=== PATIENT | male | born 1945 | race Caucasian/White ===

== ENCOUNTER 2016-05-20 07:04 | Inpatient (IN) | payer MEDICARE, OTHER ==
[~2016-05-20] VITALS: Ht 167.6 cm; Wt 65.7 kg
[~2016-05-20 07:04] MED LIST: ALPR0.255 PO; AMLO-512 PO; ASCO500 PO; CEFT600I IV; CLOP75 PO; DOCU250C91 PO; FERG325 PO; HYDR-3971 PO; INSLAN SQ; INSNOV SQ; INSU100V12 SQ; LISI-661 PO; METO50 PO; MULT-68 PO; POLY238P2 PO; SENN-161 PO; VITAD1000 PO
[2016-05-20 09:11] VITALS: BP 124/81
[2016-05-20] MEDS ORDERED: VANCOMYCIN HCL 500 MG in DEXTROSE 5%-WATER 100 ML IV SCH (10:15)
[2016-05-20] MEDS ORDERED: HYDROCODONE/ACETAMINOPHEN 10-325 MG TABLET PO PRN (10:15)
[2016-05-20] MEDS ORDERED: ACETAMINOPHEN 325 MG TABLET PO PRN (10:15)
[2016-05-20] MEDS ORDERED: HEPARIN SODIUM,PORCINE 5,000 UNITS/ML VIAL SQ SCH (10:15)
[2016-05-20] MEDS ORDERED: HYDROmorphone 2 MG/ML SYRINGE IVP PRN (10:15)
[2016-05-20] MEDS ORDERED: DOCUSATE SODIUM 100 MG CAPSULE PO SCH (10:15)
[2016-05-20] MEDS ORDERED: HYDROCODONE/ACETAMINOPHEN 5-325 MG TABLET PO PRN (10:15)
[2016-05-20] MEDS ORDERED: IODOG TP (10:52)
[2016-05-20] MEDS ORDERED: BISA10S PR (10:52)
[2016-05-20] MEDS ORDERED: PANT40TA25 PO (10:52)
[2016-05-20] MEDS ORDERED: ASPI-1093 PO (10:52)
[2016-05-20 11:03] VITALS: BP 135/81
[2016-05-20] MEDS ORDERED: DARB25VI SQ (11:04)
[2016-05-20] MEDS ORDERED: VANCOMYCIN HCL 1 GM/D5% WATER 200 ML IV PRN (11:15)
[2016-05-20] MEDS: AmLODIPine BESYLATE 10 MG TABLET PO SCH (11:24)
[2016-05-20] MEDS ORDERED: DEXTROSE 50%-WATER 25 GM/50 ML SYRINGE IVP PRN (11:45)
[2016-05-20] MEDS ORDERED: SODIUM CHLORIDE 0.9% IRRIG BTL 1,000 ML IRRIG ONE (11:53)
[2016-05-20] MEDS: MORPHINE SULFATE 2 MG/ML SYRINGE IVP PRN ×2 (11:57→20:51)
[2016-05-20] MEDS ORDERED: VANCOMYCIN HCL 1 GM/D5% WATER 200 ML IV ONE (12:00)
[2016-05-20 12:38] LABS: BASOPHILS % (AUTO) 1.4 % (0.0-2.0); EOSINOPHILS % (AUTO) 0.9 % (1.0-6.0); HEMATOCRIT 32.9 % (41-53); HEMOGLOBIN 10.7 g/dL (13.5-17.5); LYMPHOCYTES # (AUTO) 1.3 K/uL (1.0-4.8); LYMPHOCYTES % (AUTO) 9.2 % (22.0-44.0); MEAN CORPUSCULAR HEMOGLOBIN 29.1 pg (26.0-34.0); MEAN CORPUSCULAR HGB CONC 32.4 G/dL (31.0-37.0); MEAN CORPUSCULAR VOLUME 90 fL (80-100); MONOCYTES # (AUTO) 0.9 K/uL (0.1-1.0); MONOCYTES % (AUTO) 6.3 % (2.0-9.0); NEUTROPHILS # (AUTO) 11.7 K/uL (1.8-7.7); NEUTROPHILS % (AUTO) 82.2 % (40.0-70.0); PLATELET COUNT (AUTO) 616 K/uL (150-450); RED BLOOD CELL COUNT(AUTO) 3.67 MIL/uL (4.50-5.90); RED CELL DISTRIBUTION WIDTH 15.9 % (11.5-14.5); WHITE BLOOD COUNT (AUTO) 14.3 K/uL (4.5-11.0)
[2016-05-20 12:45] LABS: INR 1.1 (0.9-1.1); PROTHROMBIN TIME 11.2 SEC (9.4-11.6)
[2016-05-20 12:48] LABS: ALBUMIN 2.3 g/dL (3.4-5.0); BILIRUBIN,TOTAL 0.5 mg/dL (0.1-1.0); CALCIUM, TOTAL 9.2 mg/dL (8.8-10.5); CREATININE 3.64 mg/dL (0.60-1.30); POTASSIUM 4.8 mmol/L (3.5-5.1); TOTAL PROTEIN, SERUM 7.8 g/dL (6.4-8.2)
[2016-05-20] MEDS ORDERED: SODIUM CHLORIDE 0.9% 250 ML IV ONE (13:24)
[2016-05-20] MEDS: INSULIN DETEMIR 100 UNITS/ML SQ SCH (13:28)
[2016-05-20] MEDS: VITAMIN B COMPLEX ER TABLET PO SCH (13:29)
[2016-05-20] MEDS: ALBUTEROL SULFATE 2.5 MG/0.5 ML NEB SOLUTION NEB SCH ×3 (15:38→23:41)
[2016-05-20] MEDS: IPRATROPIUM BROMIDE 0.5 MG/2.5 ML NEB SOLUTION NEB SCH ×3 (15:38→23:41)
[2016-05-20 15:53] VITALS: BP 133/69
[2016-05-20 16:00] LABS: ABG A-A DIFF O2 346.4 mmHg (10-20.0); ABG BASE EXCESS -3.4 mmol/L (-2.0-3.0); ABG HCO3 22.3 mmol/L (22.0-26.0); ABG OXYHEMOGLOBIN 86.6 % (94.0-100.0); ABG PCO2 29 mmHg (35-45); ABG PH 7.462 (7.35-7.450); ALLEN TEST, BLOOD GAS Positive; TEMPERATURE, FAHRENHEIT, BG 97.7 FAHREN (96.0-98.6)
[2016-05-20] MEDS: POVIDONE-IODINE 10% 120 ML SOLUTION TP SCH (16:26)
[2016-05-20] MEDS: OxyCODONE HCL/ACETAMINOPHEN 5-325 MG TABLET PO PRN (16:26)
[2016-05-20] MEDS: INSULIN ASPART 100 UNITS/ML SQ PRN (17:56)
[2016-05-20 19:39] VITALS: BP 125/65
[2016-05-20] MEDS: HEPARIN SODIUM,PORCINE 5,000 UNITS/ML VIAL SQ SCH (20:39)
[2016-05-20] MEDS: DOCUSATE SODIUM 100 MG CAPSULE PO SCH (20:39)
[2016-05-20] MEDS: SODIUM BICARBONATE 650 MG TABLET PO SCH (20:39)
[2016-05-20] MEDS ORDERED: FERR-89 PO (21:01)
[2016-05-20 23:42] VITALS: BP 126/72
[2016-05-21] MEDS: MORPHINE SULFATE 2 MG/ML SYRINGE IVP PRN ×3 (00:44→11:44)
[2016-05-21] MEDS: IPRATROPIUM BROMIDE 0.5 MG/2.5 ML NEB SOLUTION NEB SCH ×6 (02:31→23:42)
[2016-05-21] MEDS: ALBUTEROL SULFATE 2.5 MG/0.5 ML NEB SOLUTION NEB SCH ×6 (02:31→23:42)
[2016-05-21 05:05] VITALS: BP 121/76
[2016-05-21] MEDS: INSULIN ASPART 100 UNITS/ML SQ PRN ×2 (05:49→17:47)
[2016-05-21 06:26] LABS: GLUCOSE COMMENT 1 Received Meds; GLUCOSE,POINT OF CARE 243 MG/DL (70-110)
[2016-05-21] MEDS: ACETAMINOPHEN 325 MG TABLET PO PRN (06:36)
[2016-05-21 07:27] VITALS: BP 130/73
[2016-05-21] MEDS: POVIDONE-IODINE 10% 120 ML SOLUTION TP SCH (08:37)
[2016-05-21] MEDS: OxyCODONE HCL/ACETAMINOPHEN 5-325 MG TABLET PO PRN ×3 (08:37→20:08)
[2016-05-21] MEDS: AmLODIPine BESYLATE 10 MG TABLET PO SCH (08:37)
[2016-05-21] MEDS: DOCUSATE SODIUM 100 MG CAPSULE PO SCH ×2 (08:37→20:08)
[2016-05-21] MEDS: METOPROLOL SUCCINATE 25 MG ER TABLET PO SCH (08:37)
[2016-05-21] MEDS: PANTOPRAZOLE SODIUM 40 MG DR TABLET PO SCH (08:38)
[2016-05-21] MEDS: ERGOCALCIFEROL (VIT D2) 50,000 UNITS CAPSULE PO SCH (08:38)
[2016-05-21] MEDS: SODIUM BICARBONATE 650 MG TABLET PO SCH ×2 (08:38→20:09)
[2016-05-21] MEDS: VITAMIN B COMPLEX ER TABLET PO SCH (08:38)
[2016-05-21] MEDS: FERROUS SULFATE 325 MG EC TABLET PO SCH (08:38)
[2016-05-21] MEDS: HEPARIN SODIUM,PORCINE 5,000 UNITS/ML VIAL SQ SCH ×2 (08:38→20:09)
[2016-05-21 08:44] LABS: CALCIUM, TOTAL 9.1 mg/dL (8.8-10.5); CREATININE 3.88 mg/dL (0.60-1.30); POTASSIUM 4.5 mmol/L (3.5-5.1)
[2016-05-21] MEDS: INSULIN DETEMIR 100 UNITS/ML SQ SCH (08:44)
[2016-05-21 11:30] VITALS: BP 114/69
[2016-05-21 12:28] LABS: TOTAL PROTEIN, SERUM 7.5 g/dL (6.4-8.2)
[2016-05-21] MEDS: BUMETANIDE 0.25 MG/ML 10 ML VIAL IVP SCH ×2 (13:34→20:08)
[2016-05-21 16:29] VITALS: BP 119/66
[2016-05-21 18:17] LABS: GLUCOSE COMMENT 1 Received Meds; GLUCOSE,POINT OF CARE 285 MG/DL (70-110)
[2016-05-21 18:17] LABS: GLUCOSE COMMENT 1 Received Meds; GLUCOSE,POINT OF CARE 170 MG/DL (70-110)
[2016-05-21 18:17] LABS: GLUCOSE COMMENT 1 Received Meds; GLUCOSE,POINT OF CARE 309 MG/DL (70-110)
[2016-05-21 18:17] LABS: GLUCOSE,POINT OF CARE 124 MG/DL (70-110)
[2016-05-21 19:36] VITALS: BP 115/68
[2016-05-21 21:27] LABS: COLOR,BODY FLUID YELLOW (LT YELLOW); OTHER CELLS,BODY FLUID MESOTHELIALS; PH, BODY FLUID 7
[2016-05-21 21:32] LABS: APPEARANCE,UNSPUN,BODY FLUID SLIGHTLY CLOUDY (CLEAR)
[2016-05-21] MEDS: ZOLPIDEM TARTRATE 10 MG TABLET PO PRN (21:48)
[2016-05-21 23:41] VITALS: BP 118/68
[2016-05-22] MEDS: IPRATROPIUM BROMIDE 0.5 MG/2.5 ML NEB SOLUTION NEB SCH ×6 (03:17→23:04)
[2016-05-22] MEDS: ALBUTEROL SULFATE 2.5 MG/0.5 ML NEB SOLUTION NEB SCH ×6 (03:17→23:05)
[2016-05-22 04:19] VITALS: BP 116/67
[2016-05-22] MEDS: OxyCODONE HCL/ACETAMINOPHEN 5-325 MG TABLET PO PRN ×4 (06:03→21:04)
[2016-05-22] MEDS: INSULIN ASPART 100 UNITS/ML SQ PRN ×3 (06:48→17:14)
[2016-05-22 08:00] VITALS: BP 112/75
[2016-05-22] MEDS: FERROUS SULFATE 325 MG EC TABLET PO SCH (08:24)
[2016-05-22] MEDS: VITAMIN B COMPLEX ER TABLET PO SCH (08:25)
[2016-05-22] MEDS: BUMETANIDE 0.25 MG/ML 10 ML VIAL IVP SCH (08:25)
[2016-05-22] MEDS: DOCUSATE SODIUM 100 MG CAPSULE PO SCH ×2 (08:26→21:04)
[2016-05-22] MEDS: AmLODIPine BESYLATE 10 MG TABLET PO SCH (08:26)
[2016-05-22] MEDS: HEPARIN SODIUM,PORCINE 5,000 UNITS/ML VIAL SQ SCH ×2 (08:26→21:04)
[2016-05-22] MEDS: PANTOPRAZOLE SODIUM 40 MG DR TABLET PO SCH (08:26)
[2016-05-22] MEDS: METOPROLOL SUCCINATE 25 MG ER TABLET PO SCH (08:26)
[2016-05-22] MEDS: SODIUM BICARBONATE 650 MG TABLET PO SCH ×2 (08:26→21:04)
[2016-05-22] MEDS: INSULIN DETEMIR 100 UNITS/ML SQ SCH (08:40)
[2016-05-22] MEDS: POVIDONE-IODINE 10% 120 ML SOLUTION TP SCH (08:52)
[2016-05-22 10:19] LABS: BASOPHILS % (AUTO) 1.8 % (0.0-2.0); HEMOGLOBIN 8.6 g/dL (13.5-17.5); LYMPHOCYTES # (AUTO) 0.8 K/uL (1.0-4.8); LYMPHOCYTES % (AUTO) 6.3 % (22.0-44.0); MEAN CORPUSCULAR HEMOGLOBIN 29.1 pg (26.0-34.0); MEAN CORPUSCULAR HGB CONC 32.9 G/dL (31.0-37.0); MEAN CORPUSCULAR VOLUME 88 fL (80-100); MONOCYTES % (AUTO) 8.1 % (2.0-9.0); NEUTROPHILS # (AUTO) 10.6 K/uL (1.8-7.7); NEUTROPHILS % (AUTO) 82.8 % (40.0-70.0); PLATELET COUNT (AUTO) 590 K/uL (150-450); RED BLOOD CELL COUNT(AUTO) 2.94 MIL/uL (4.50-5.90); RED CELL DISTRIBUTION WIDTH 15.8 % (11.5-14.5); WHITE BLOOD COUNT (AUTO) 12.8 K/uL (4.5-11.0)
[2016-05-22 11:19] LABS: CALCIUM, TOTAL 8.9 mg/dL (8.8-10.5); CREATININE 4.08 mg/dL (0.60-1.30); POTASSIUM 4.1 mmol/L (3.5-5.1)
[2016-05-22] MEDS: METOLAZONE 2.5 MG TABLET PO SCH ×2 (11:42→21:04)
[2016-05-22 12:08] VITALS: BP 124/79
[2016-05-22 16:03] VITALS: BP 128/79
[2016-05-22 16:08] LABS: TOTAL PROTEIN,BODY FLUID,REF 1.3 g/dL
[2016-05-22 19:39] VITALS: BP 113/70
[2016-05-22 22:12] VITALS: BP 86/36
[2016-05-23] VITALS (9 sets, daily range): BP systolic 86–135; BP diastolic 40–95
[2016-05-23] MEDS: BUMETANIDE 0.25 MG/ML 10 ML VIAL IVP SCH ×4 (00:51→21:45)
[2016-05-23] MEDS: ALBUTEROL SULFATE 2.5 MG/0.5 ML NEB SOLUTION NEB SCH ×6 (02:45→23:41)
[2016-05-23] MEDS: IPRATROPIUM BROMIDE 0.5 MG/2.5 ML NEB SOLUTION NEB SCH ×6 (02:46→23:41)
[2016-05-23] MEDS: INSULIN ASPART 100 UNITS/ML SQ PRN (06:25)
[2016-05-23] MEDS: OxyCODONE HCL/ACETAMINOPHEN 5-325 MG TABLET PO PRN ×3 (06:38→23:23)
[2016-05-23 06:42] LABS: GLUCOSE,POINT OF CARE 147 MG/DL (70-110)
[2016-05-23 06:42] LABS: GLUCOSE COMMENT 1 Received Meds; GLUCOSE,POINT OF CARE 221 MG/DL (70-110)
[2016-05-23 06:42] LABS: GLUCOSE COMMENT 1 Received Meds; GLUCOSE,POINT OF CARE 211 MG/DL (70-110)
[2016-05-23 06:43] LABS: GLUCOSE COMMENT 1 Received Meds; GLUCOSE,POINT OF CARE 144 MG/DL (70-110)
[2016-05-23 06:43] LABS: GLUCOSE COMMENT 1 Received Meds; GLUCOSE,POINT OF CARE 195 MG/DL (70-110)
[2016-05-23] MEDS: HEPARIN SODIUM,PORCINE 5,000 UNITS/ML VIAL SQ SCH ×2 (08:06→21:46)
[2016-05-23] MEDS: SODIUM BICARBONATE 650 MG TABLET PO SCH ×2 (08:13→21:45)
[2016-05-23] MEDS: DOCUSATE SODIUM 100 MG CAPSULE PO SCH ×2 (08:13→21:45)
[2016-05-23] MEDS: PANTOPRAZOLE SODIUM 40 MG DR TABLET PO SCH (08:13)
[2016-05-23] MEDS: FERROUS SULFATE 325 MG EC TABLET PO SCH (08:13)
[2016-05-23] MEDS: AmLODIPine BESYLATE 5 MG TABLET PO SCH (08:13)
[2016-05-23] MEDS: METOLAZONE 2.5 MG TABLET PO SCH ×2 (08:14→21:46)
[2016-05-23] MEDS: VITAMIN B COMPLEX ER TABLET PO SCH (08:14)
[2016-05-23] MEDS: POVIDONE-IODINE 10% 120 ML SOLUTION TP SCH (08:14)
[2016-05-23] MEDS: INSULIN DETEMIR 100 UNITS/ML SQ SCH (08:16)
[2016-05-23] MEDS: METOPROLOL SUCCINATE 25 MG ER TABLET PO SCH (09:00)
[2016-05-23 09:50] LABS: CALCIUM, TOTAL 9.1 mg/dL (8.8-10.5); CREATININE 4.32 mg/dL (0.60-1.30); POTASSIUM 4.4 mmol/L (3.5-5.1)
[2016-05-23] MEDS ORDERED: MORPHINE SULFATE 4 MG/ML SYRINGE IVP ONE (13:00)
[2016-05-23] MEDS ORDERED: MORPHINE SULFATE 2 MG/ML SYRINGE IM ONE ×2 (13:15)
[2016-05-23] MEDS ORDERED: MORPHINE SULFATE 2 MG/ML SYRINGE IVP ONE (13:15)
[2016-05-23 17:52] LABS: GLUCOSE,POINT OF CARE 106 MG/DL (70-110)
[2016-05-23 17:52] LABS: GLUCOSE COMMENT 1 Received Meds; GLUCOSE,POINT OF CARE 152 MG/DL (70-110)
[2016-05-23 17:52] LABS: GLUCOSE COMMENT 1 Received Meds; GLUCOSE,POINT OF CARE 207 MG/DL (70-110)
[2016-05-23 17:52] LABS: GLUCOSE COMMENT 1 Received Meds; GLUCOSE,POINT OF CARE 201 MG/DL (70-110)
[2016-05-23 17:53] LABS: GLUCOSE COMMENT 1 Received Meds; GLUCOSE,POINT OF CARE 140 MG/DL (70-110)
[2016-05-23] MEDS: ZOLPIDEM TARTRATE 10 MG TABLET PO PRN (23:14)
[2016-05-24] VITALS (18 sets, daily range): BP systolic 108–136; BP diastolic 56–76
[2016-05-24] MEDS: ALBUTEROL SULFATE 2.5 MG/0.5 ML NEB SOLUTION NEB SCH ×6 (02:31→23:00)
[2016-05-24] MEDS: IPRATROPIUM BROMIDE 0.5 MG/2.5 ML NEB SOLUTION NEB SCH ×6 (02:31→23:00)
[2016-05-24] MEDS: OxyCODONE HCL/ACETAMINOPHEN 5-325 MG TABLET PO PRN ×2 (06:09→18:14)
[2016-05-24 06:43] LABS: BASOPHILS % (AUTO) 0.8 % (0.0-2.0); EOSINOPHILS % (AUTO) 2.2 % (1.0-6.0); HEMATOCRIT 26.3 % (41-53); HEMOGLOBIN 8.6 g/dL (13.5-17.5); LYMPHOCYTES # (AUTO) 0.8 K/uL (1.0-4.8); LYMPHOCYTES % (AUTO) 7.4 % (22.0-44.0); MEAN CORPUSCULAR HGB CONC 32.8 G/dL (31.0-37.0); MEAN CORPUSCULAR VOLUME 88 fL (80-100); MONOCYTES # (AUTO) 0.7 K/uL (0.1-1.0); MONOCYTES % (AUTO) 6.9 % (2.0-9.0); NEUTROPHILS # (AUTO) 8.9 K/uL (1.8-7.7); NEUTROPHILS % (AUTO) 82.7 % (40.0-70.0); PLATELET COUNT (AUTO) 639 K/uL (150-450); RED BLOOD CELL COUNT(AUTO) 2.98 MIL/uL (4.50-5.90); RED CELL DISTRIBUTION WIDTH 15.6 % (11.5-14.5); WHITE BLOOD COUNT (AUTO) 10.8 K/uL (4.5-11.0)
[2016-05-24 06:50] LABS: CALCIUM, TOTAL 9.3 mg/dL (8.8-10.5); CREATININE 4.18 mg/dL (0.60-1.30); POTASSIUM 3.6 mmol/L (3.5-5.1)
[2016-05-24] MEDS: FERROUS SULFATE 325 MG EC TABLET PO SCH (07:35)
[2016-05-24] MEDS: METOPROLOL SUCCINATE 25 MG ER TABLET PO SCH (07:35)
[2016-05-24] MEDS: INSULIN DETEMIR 100 UNITS/ML SQ SCH (07:36)
[2016-05-24] MEDS: HEPARIN SODIUM,PORCINE 5,000 UNITS/ML VIAL SQ SCH ×2 (07:36→21:31)
[2016-05-24] MEDS: AmLODIPine BESYLATE 5 MG TABLET PO SCH (07:36)
[2016-05-24] MEDS ORDERED: ACETYLCYSTEINE 20% 200 MG/ML 4 ML ORAL SOLUTION PO ONE (07:45)
[2016-05-24] MEDS: PANTOPRAZOLE SODIUM 40 MG DR TABLET PO SCH (08:40)
[2016-05-24] MEDS: DOCUSATE SODIUM 100 MG CAPSULE PO SCH ×2 (08:40→21:31)
[2016-05-24] MEDS: SODIUM BICARBONATE 650 MG TABLET PO SCH ×2 (08:40→21:00)
[2016-05-24] MEDS: METOLAZONE 2.5 MG TABLET PO SCH (08:40)
[2016-05-24] MEDS: VITAMIN B COMPLEX ER TABLET PO SCH (08:40)
[2016-05-24] MEDS: BUMETANIDE 0.25 MG/ML 10 ML VIAL IVP SCH (08:41)
[2016-05-24] MEDS: SODIUM CHLORIDE 0.9% 1,000 ML IV SCH ×2 (08:47→23:50)
[2016-05-24] MEDS: POVIDONE-IODINE 10% 120 ML SOLUTION TP SCH (09:00)
[2016-05-24] MEDS ORDERED: LIDOCAINE HCL/PF 1% 30 ML VIAL ONE (12:10)
[2016-05-24] MEDS ORDERED: MIDAZOLAM HCL 2 MG/2 ML VIAL ONE (12:14)
[2016-05-24] MEDS ORDERED: FentaNYL CITRATE-PF 100 MCG/2 ML VIAL ONE (12:14)
[2016-05-24] MEDS ORDERED: HEPARIN SODIUM,PORCINE 100 UNITS/ML 5 ML VIAL IVP ONE (12:30)
[2016-05-24] MEDS ORDERED: HEPARIN SODIUM 1000 UNITS/NS 0 ML ONE (12:30)
[2016-05-24] MEDS ORDERED: FentaNYL CITRATE-PF 100 MCG/2 ML VIAL IVP ONE (12:30)
[2016-05-24] MEDS ORDERED: MIDAZOLAM HCL 2 MG/2 ML VIAL IVP ONE (12:30)
[2016-05-24] MEDS ORDERED: LIDOCAINE 1% 30 ML/SOD BICARB 8.4% 4 ML SQ ONE (12:30)
[2016-05-24] MEDS ORDERED: HEPARIN SODIUM,PORCINE 1,000 UNITS/ML 10 ML VIAL ONE (12:31)
[2016-05-24 17:32] LABS: GLUCOSE COMMENT 1 Received Meds; GLUCOSE,POINT OF CARE 121 MG/DL (70-110)
[2016-05-24 17:37] LABS: GLUCOSE COMMENT 1 Received Meds; GLUCOSE,POINT OF CARE 152 MG/DL (70-110)
[2016-05-24] MEDS ORDERED: MANNITOL 25%-12.5 GM/50 ML VIAL IVP PRN (18:30)
[2016-05-24] MEDS ORDERED: HEPARIN SODIUM,PORCINE 1,000 UNITS/ML VIAL IVP ONE ×2 (18:30)
[2016-05-24] MEDS: INSULIN ASPART 100 UNITS/ML SQ PRN (21:32)
[2016-05-25] VITALS (13 sets, daily range): BP systolic 105–130; BP diastolic 58–79
[2016-05-25] MEDS: IPRATROPIUM BROMIDE 0.5 MG/2.5 ML NEB SOLUTION NEB SCH ×6 (02:58→22:27)
[2016-05-25] MEDS: ALBUTEROL SULFATE 2.5 MG/0.5 ML NEB SOLUTION NEB SCH ×6 (02:58→22:27)
[2016-05-25] MEDS: OxyCODONE HCL/ACETAMINOPHEN 5-325 MG TABLET PO PRN ×5 (03:36→21:41)
[2016-05-25] MEDS: ACETAMINOPHEN 325 MG TABLET PO PRN (05:50)
[2016-05-25 07:01] LABS: BASOPHILS # (AUTO) 0.03 K/uL (0.00-0.20); BASOPHILS % (AUTO) 0.3 % (0.0-2.0); EOSINOPHILS % (AUTO) 1.84 % (1.0-6.0); HEMATOCRIT 25.6 % (41-53); HEMOGLOBIN 8.5 g/dL (13.5-17.5); LYMPHOCYTES # (AUTO) 0.6 K/uL (1.0-4.8); LYMPHOCYTES % (AUTO) 5.6 % (22.0-44.0); MEAN CORPUSCULAR HEMOGLOBIN 29.5 pg (26.0-34.0); MEAN CORPUSCULAR HGB CONC 33.1 G/dL (31.0-37.0); MEAN CORPUSCULAR VOLUME 89 fL (80-100); MONOCYTES # (AUTO) 0.8 K/uL (0.1-1.0); MONOCYTES % (AUTO) 6.9 % (2.0-9.0); NEUTROPHILS # (AUTO) 9.5 K/uL (1.8-7.7); PLATELET COUNT (AUTO) 712 K/uL (150-450); RED BLOOD CELL COUNT(AUTO) 2.87 MIL/uL (4.50-5.90); RED CELL DISTRIBUTION WIDTH 15.8 % (11.5-14.5); WHITE BLOOD COUNT (AUTO) 11.1 K/uL (4.5-11.0)
[2016-05-25 07:15] LABS: NEUTROPHILS % (AUTO) 85.4 % (40.0-70.0)
[2016-05-25 07:47] LABS: CREATININE 3.65 mg/dL (0.60-1.30); POTASSIUM 4.8 mmol/L (3.5-5.1)
[2016-05-25] MEDS ORDERED: VANCOMYCIN HCL 1 GM/D5% WATER 200 ML IV ONE (08:00)
[2016-05-25 08:03] LABS: CALCIUM, TOTAL 9.1 mg/dL (8.8-10.5)
[2016-05-25] MEDS: METOPROLOL SUCCINATE 25 MG ER TABLET PO SCH (08:08)
[2016-05-25] MEDS: FERROUS SULFATE 325 MG EC TABLET PO SCH (08:08)
[2016-05-25] MEDS: DOCUSATE SODIUM 100 MG CAPSULE PO SCH ×2 (08:09→21:14)
[2016-05-25] MEDS: PANTOPRAZOLE SODIUM 40 MG DR TABLET PO SCH (08:09)
[2016-05-25] MEDS: VITAMIN B COMPLEX ER TABLET PO SCH (08:10)
[2016-05-25] MEDS: AmLODIPine BESYLATE 5 MG TABLET PO SCH (08:14)
[2016-05-25] MEDS: SODIUM BICARBONATE 650 MG TABLET PO SCH ×2 (08:14→21:14)
[2016-05-25] MEDS: POVIDONE-IODINE 10% 120 ML SOLUTION TP SCH (09:00)
[2016-05-25] MEDS: HEPARIN SODIUM,PORCINE 5,000 UNITS/ML VIAL SQ SCH ×2 (09:00→21:14)
[2016-05-25] MEDS: INSULIN DETEMIR 100 UNITS/ML SQ SCH (09:00)
[2016-05-25] MEDS: SODIUM CHLORIDE 0.9% 1,000 ML IV SCH (09:07)
[2016-05-25] MEDS ORDERED: HEPARIN SODIUM,PORCINE 1,000 UNITS/ML VIAL IVP ONE ×3 (10:00→18:30)
[2016-05-25] MEDS ORDERED: IOHEXOL 300 MG/ML 50 ML VIAL ONE ×2 (10:14→10:46)
[2016-05-25] MEDS ORDERED: SODIUM BICARBONATE 50 MEQ/50 ML VIAL ONE (10:14)
[2016-05-25] MEDS ORDERED: LIDOCAINE HCL/PF 1% 30 ML VIAL ONE (10:14)
[2016-05-25] MEDS ORDERED: HEPARIN SODIUM 1000 UNITS/NS 500 ML ONE (10:14)
[2016-05-25] MEDS ORDERED: MIDAZOLAM HCL 2 MG/2 ML VIAL ONE (10:15)
[2016-05-25] MEDS ORDERED: FentaNYL CITRATE-PF 100 MCG/2 ML VIAL ONE (10:15)
[2016-05-25] MEDS ORDERED: ONDANSETRON HCL 4 MG/2 ML VIAL ONE (10:15)
[2016-05-25] MEDS ORDERED: NITROGLYCERIN 50 MG/D5% WATER 0 ML ONE (10:16)
[2016-05-25] MEDS ORDERED: VERAPAMIL HCL 2.5 MG/ML 2 ML VIAL ONE (10:16)
[2016-05-25] MEDS ORDERED: FentaNYL CITRATE-PF 100 MCG/2 ML VIAL IVP ONE (10:30)
[2016-05-25] MEDS ORDERED: ONDANSETRON HCL 4 MG/2 ML VIAL IVP ONE (10:30)
[2016-05-25] MEDS ORDERED: MIDAZOLAM HCL 2 MG/2 ML VIAL IVP ONE (10:30)
[2016-05-25] MEDS ORDERED: SODIUM CHLORIDE 0.9% 500 ML IV ONE (10:31)
[2016-05-25] MEDS ORDERED: HEPARIN SODIUM,PORCINE 100 UNITS/ML 5 ML VIAL IVP ONE (10:45)
[2016-05-25] MEDS ORDERED: HEPARIN SODIUM 1000 UNITS/NS 500 ML IV ONE (10:45)
[2016-05-25] MEDS ORDERED: IOHEXOL 300 MG/ML 50 ML VIAL IARTER ONE (10:45)
[2016-05-25] MEDS ORDERED: LIDOCAINE 1% 30 ML/SOD BICARB 8.4% 4 ML SQ ONE (10:45)
[2016-05-25] MEDS ORDERED: HEPARIN SODIUM,PORCINE 5,000 UNITS/ML VIAL IVP ONE (11:15)
[2016-05-25] MEDS: INSULIN ASPART 100 UNITS/ML SQ PRN (12:59)
[2016-05-25] MEDS ORDERED: MANNITOL 25%-12.5 GM/50 ML VIAL IVP PRN (18:30)
[2016-05-26] MEDS: OxyCODONE HCL/ACETAMINOPHEN 5-325 MG TABLET PO PRN ×3 (01:36→18:01)
[2016-05-26 03:00] VITALS: BP 109/61
[2016-05-26] MEDS: MORPHINE SULFATE 2 MG/ML SYRINGE IVP PRN ×3 (03:07→20:17)
[2016-05-26] MEDS: IPRATROPIUM BROMIDE 0.5 MG/2.5 ML NEB SOLUTION NEB SCH ×6 (03:26→23:19)
[2016-05-26] MEDS: ALBUTEROL SULFATE 2.5 MG/0.5 ML NEB SOLUTION NEB SCH ×6 (03:27→23:19)
[2016-05-26 04:19] VITALS: BP 107/65
[2016-05-26 06:20] LABS: BASOPHILS % (AUTO) 0.1 % (0.0-2.0); EOSINOPHILS % (AUTO) 4.1 % (1.0-6.0); HEMATOCRIT 21.7 % (41-53); HEMOGLOBIN 7.1 g/dL (13.5-17.5); LYMPHOCYTES # (AUTO) 0.8 K/uL (1.0-4.8); LYMPHOCYTES % (AUTO) 8.3 % (22.0-44.0); MEAN CORPUSCULAR HGB CONC 32.6 G/dL (31.0-37.0); MEAN CORPUSCULAR VOLUME 89 fL (80-100); MONOCYTES # (AUTO) 0.8 K/uL (0.1-1.0); NEUTROPHILS # (AUTO) 7.8 K/uL (1.8-7.7); NEUTROPHILS % (AUTO) 79.5 % (40.0-70.0); PLATELET COUNT (AUTO) 563 K/uL (150-450); RED BLOOD CELL COUNT(AUTO) 2.44 MIL/uL (4.50-5.90); RED CELL DISTRIBUTION WIDTH 16.2 % (11.5-14.5); WHITE BLOOD COUNT (AUTO) 9.8 K/uL (4.5-11.0)
[2016-05-26 06:27] LABS: CALCIUM, TOTAL 8.4 mg/dL (8.8-10.5); CREATININE 2.85 mg/dL (0.60-1.30); POTASSIUM 3.6 mmol/L (3.5-5.1)
[2016-05-26 08:34] VITALS: BP 106/64
[2016-05-26] MEDS: DOCUSATE SODIUM 100 MG CAPSULE PO SCH ×2 (08:44→19:51)
[2016-05-26] MEDS: SODIUM BICARBONATE 650 MG TABLET PO SCH ×2 (08:44→19:51)
[2016-05-26] MEDS: METOPROLOL SUCCINATE 25 MG ER TABLET PO SCH (08:44)
[2016-05-26] MEDS: AmLODIPine BESYLATE 5 MG TABLET PO SCH (08:44)
[2016-05-26] MEDS: PANTOPRAZOLE SODIUM 40 MG DR TABLET PO SCH (08:44)
[2016-05-26] MEDS: FERROUS SULFATE 325 MG EC TABLET PO SCH (08:44)
[2016-05-26] MEDS: VITAMIN B COMPLEX ER TABLET PO SCH (08:44)
[2016-05-26] MEDS: HEPARIN SODIUM,PORCINE 5,000 UNITS/ML VIAL SQ SCH ×2 (08:45→19:51)
[2016-05-26] MEDS: POVIDONE-IODINE 10% 120 ML SOLUTION TP SCH (08:51)
[2016-05-26] MEDS: INSULIN DETEMIR 100 UNITS/ML SQ SCH (09:01)
[2016-05-26 11:17] LABS: HEPATITIS Bs ANTIGEN SCREEN P Negative (Negative)
[2016-05-26 11:35] VITALS: BP 118/65
[2016-05-26] MEDS: SODIUM CHLORIDE 0.9% 1,000 ML IV SCH (15:00)
[2016-05-26] MEDS: EPOETIN ALFA 10,000 UNITS/ML 2 ML VIAL SQ SCH (16:53)
[2016-05-26] MEDS ORDERED: HEPARIN SODIUM,PORCINE 5,000 UNITS/ML VIAL SQ ONE (18:25)
[2016-05-26 19:14] VITALS: BP 109/61
[2016-05-26] MEDS: ZOLPIDEM TARTRATE 10 MG TABLET PO PRN (20:18)
[2016-05-26] MEDS: INSULIN ASPART 100 UNITS/ML SQ PRN (20:23)
[2016-05-26 23:57] LABS: GLUCOSE,POINT OF CARE 151 MG/DL (70-110)
[2016-05-26 23:57] LABS: GLUCOSE,POINT OF CARE 80 MG/DL (70-110)
[2016-05-26 23:59] VITALS: BP 111/67
[2016-05-27] VITALS (11 sets, daily range): BP systolic 100–124; BP diastolic 56–77
[2016-05-27] MEDS ORDERED: PHENYLEPHRINE HCL 10 MG/ML VIAL IVP ONE (00:13)
[2016-05-27] MEDS ORDERED: FentaNYL CITRATE-PF 250 MCG/5 ML VIAL IVP ONE (00:13)
[2016-05-27] MEDS ORDERED: LIDOCAINE HCL/PF 2% 5 ML VIAL IM ONE (00:13)
[2016-05-27] MEDS ORDERED: DEXAMETHASONE SOD PHOS 4 MG/ML VIAL IVP ONE (00:13)
[2016-05-27] MEDS ORDERED: ETOMIDATE 2 MG/ML 10 ML VIAL IVP ONE (00:13)
[2016-05-27] MEDS ORDERED: MIDAZOLAM HCL 2 MG/2 ML VIAL IVP ONE (00:13)
[2016-05-27] MEDS: MORPHINE SULFATE 2 MG/ML SYRINGE IVP PRN ×2 (02:04→05:31)
[2016-05-27] MEDS: OxyCODONE HCL/ACETAMINOPHEN 5-325 MG TABLET PO PRN (03:27)
[2016-05-27] MEDS: ALBUTEROL SULFATE 2.5 MG/0.5 ML NEB SOLUTION NEB SCH ×6 (03:32→22:56)
[2016-05-27] MEDS: IPRATROPIUM BROMIDE 0.5 MG/2.5 ML NEB SOLUTION NEB SCH ×6 (03:32→22:56)
[2016-05-27 06:56] LABS: GLUCOSE COMMENT 1 Received Meds; GLUCOSE,POINT OF CARE 168 MG/DL (70-110)
[2016-05-27] MEDS ORDERED: SODIUM CHLORIDE 0.9% 10 ML ONE (07:20)
[2016-05-27] MEDS ORDERED: HEPARIN SODIUM 1000 UNITS/NS 500 ML ONE ×3 (07:20→11:04)
[2016-05-27] MEDS ORDERED: GELATIN SPONGE,ABSORBABLE 100 MM TP ONE (07:23)
[2016-05-27] MEDS: FERROUS SULFATE 325 MG EC TABLET PO SCH (08:00)
[2016-05-27] MEDS ORDERED: SODIUM CHLORIDE 0.9% 1,000 ML IV ONE ×4 (08:36→12:11)
[2016-05-27] MEDS: SODIUM BICARBONATE 650 MG TABLET PO SCH ×2 (09:00→21:00)
[2016-05-27] MEDS: INSULIN DETEMIR 100 UNITS/ML SQ SCH (09:00)
[2016-05-27] MEDS: METOPROLOL SUCCINATE 25 MG ER TABLET PO SCH (09:00)
[2016-05-27] MEDS: AmLODIPine BESYLATE 5 MG TABLET PO SCH (09:00)
[2016-05-27] MEDS: POVIDONE-IODINE 10% 120 ML SOLUTION TP SCH (09:00)
[2016-05-27] MEDS: DOCUSATE SODIUM 100 MG CAPSULE PO SCH ×2 (09:00→21:00)
[2016-05-27] MEDS: PANTOPRAZOLE SODIUM 40 MG DR TABLET PO SCH (09:00)
[2016-05-27] MEDS: HEPARIN SODIUM,PORCINE 5,000 UNITS/ML VIAL SQ SCH ×2 (09:00→21:00)
[2016-05-27] MEDS: VITAMIN B COMPLEX ER TABLET PO SCH (09:00)
[2016-05-27 10:02] LABS: ABG BASE EXCESS -6.6 mmol/L (-2.0-3.0); ABG HCO3 19.6 mmol/L (22.0-26.0); ABG OXYHEMOGLOBIN 91.3 % (94.0-100.0); ABG PCO2 31 mmHg (35-45); ABG PH 7.392 (7.35-7.450); TEMPERATURE, FAHRENHEIT, BG 98.6 FAHREN (96.0-98.6)
[2016-05-27] MEDS ORDERED: SODIUM CHLORIDE 0.9% 250 ML IV ONE (10:54)
[2016-05-27] MEDS ORDERED: IOHEXOL 240 MG/ML 20 ML VIAL ONE ×2 (11:01→11:02)
[2016-05-27] MEDS ORDERED: IODIXANOL 320 MG/ML 150 ML VIAL ONE ×2 (11:04→15:01)
[2016-05-27] MEDS ORDERED: VERAPAMIL HCL 2.5 MG/ML 2 ML VIAL ONE (12:12)
[2016-05-27] MEDS ORDERED: NITROGLYCERIN 50 MG/D5% WATER 0 ML ONE (12:13)
[2016-05-27 13:01] LABS: ABG A-A DIFF O2 584.9 mmHg (10-20.0); ABG BASE EXCESS -11.2 mmol/L (-2.0-3.0); ABG HCO3 16.7 mmol/L (22.0-26.0); ABG OXYHEMOGLOBIN 96.5 % (94.0-100.0); ABG PCO2 27 mmHg (35-45); ABG PH 7.347 (7.35-7.450)
[2016-05-27 13:02] LABS: ALLEN TEST, BLOOD GAS Positive
[2016-05-27 13:03] LABS: INSIPIRATORY PRESSURE, BG 30 cm H2O
[2016-05-27] MEDS ORDERED: ROCURONIUM BROMIDE 10 MG/ML 5 ML VIAL ONE (13:03)
[2016-05-27] MEDS ORDERED: SODIUM BICARBONATE [ADULT] 8.4% 50 MEQ/50 ML SYRINGE IVP ONE (13:10)
[2016-05-27] MEDS ORDERED: RINGERS SOLUTION,LACTATED 1,000 ML IV ONE (14:21)
[2016-05-27 16:08] LABS: ABG A-A DIFF O2 548.6 mmHg (10-20.0); ABG HCO3 17.4 mmol/L (22.0-26.0); ABG OXYHEMOGLOBIN 97.1 % (94.0-100.0); ABG PCO2 30 mmHg (35-45); ABG PH 7.338 (7.35-7.450); TEMPERATURE, FAHRENHEIT, BG 97.9 FAHREN (96.0-98.6)
[2016-05-27 16:09] LABS: ALLEN TEST, BLOOD GAS Positive
[2016-05-27 18:04] LABS: BASOPHILS % (AUTO) 0.1 % (0.0-2.0); EOSINOPHILS % (AUTO) 0 % (1.0-6.0); HEMATOCRIT 31.8 % (41-53); HEMOGLOBIN 10.4 g/dL (13.5-17.5); LYMPHOCYTES # (AUTO) 0.5 K/uL (1.0-4.8); LYMPHOCYTES % (AUTO) 3.7 % (22.0-44.0); MEAN CORPUSCULAR HEMOGLOBIN 28.5 pg (26.0-34.0); MEAN CORPUSCULAR HGB CONC 32.6 G/dL (31.0-37.0); MEAN CORPUSCULAR VOLUME 88 fL (80-100); MONOCYTES # (AUTO) 0.2 K/uL (0.1-1.0); MONOCYTES % (AUTO) 1.3 % (2.0-9.0); NEUTROPHILS # (AUTO) 13.5 K/uL (1.8-7.7); PLATELET COUNT (AUTO) 592 K/uL (150-450); RED BLOOD CELL COUNT(AUTO) 3.63 MIL/uL (4.50-5.90); RED CELL DISTRIBUTION WIDTH 15.1 % (11.5-14.5); WHITE BLOOD COUNT (AUTO) 14.2 K/uL (4.5-11.0)
[2016-05-27 18:08] LABS: NEUTROPHILS % (AUTO) 94.9 % (40.0-70.0)
[2016-05-27] MEDS: SODIUM CHLORIDE 0.9% 1,000 ML IV SCH (18:08)
[2016-05-27 18:19] LABS: CALCIUM, TOTAL 9.1 mg/dL (8.8-10.5); CREATININE 3.34 mg/dL (0.60-1.30)
[2016-05-27 18:24] LABS: ALBUMIN 2.1 g/dL (3.4-5.0); BILIRUBIN,TOTAL 0.8 mg/dL (0.1-1.0); PHOSPHORUS 6.8 mg/dL (2.5-4.9); TOTAL PROTEIN, SERUM 6.4 g/dL (6.4-8.2)
[2016-05-27 19:54] LABS: INR 1.2 (0.9-1.1); PROTHROMBIN TIME 12.7 SEC (9.4-11.6)
[2016-05-27 19:55] LABS: PARTIAL THROMBOPLASTIN TIME > 300 SEC (25-35)
[2016-05-28] VITALS (10 sets, daily range): BP systolic 102–128; BP diastolic 55–68
[2016-05-28] MEDS: PROPOFOL 1000 MG/ISO-OSM 100 ML IV PRN ×4 (00:08→20:14)
[2016-05-28 01:42] LABS: GLUCOSE,POINT OF CARE 270 MG/DL (70-110)
[2016-05-28] MEDS: IPRATROPIUM BROMIDE 0.5 MG/2.5 ML NEB SOLUTION NEB SCH ×6 (02:49→23:04)
[2016-05-28] MEDS: ALBUTEROL SULFATE 2.5 MG/0.5 ML NEB SOLUTION NEB SCH ×6 (02:49→23:04)
[2016-05-28 05:32] LABS: BASOPHILS # (AUTO) 0.01 K/uL (0.00-0.20); EOSINOPHILS % (AUTO) 0 % (1.0-6.0); HEMATOCRIT 28.7 % (41-53); HEMOGLOBIN 9.4 g/dL (13.5-17.5); LYMPHOCYTES # (AUTO) 0.6 K/uL (1.0-4.8); LYMPHOCYTES % (AUTO) 4.1 % (22.0-44.0); MEAN CORPUSCULAR HEMOGLOBIN 28.9 pg (26.0-34.0); MEAN CORPUSCULAR HGB CONC 32.8 G/dL (31.0-37.0); MEAN CORPUSCULAR VOLUME 88 fL (80-100); MONOCYTES # (AUTO) 0.9 K/uL (0.1-1.0); MONOCYTES % (AUTO) 5.7 % (2.0-9.0); NEUTROPHILS # (AUTO) 13.5 K/uL (1.8-7.7); PLATELET COUNT (AUTO) 490 K/uL (150-450); RED BLOOD CELL COUNT(AUTO) 3.25 MIL/uL (4.50-5.90); WHITE BLOOD COUNT (AUTO) 14.9 K/uL (4.5-11.0)
[2016-05-28 05:47] LABS: NEUTROPHILS % (AUTO) 90.2 % (40.0-70.0)
[2016-05-28 06:18] LABS: ANION GAP 25 mmol/L (8-16); CALCIUM, TOTAL 8.8 mg/dL (8.8-10.5); CARBON DIOXIDE 15 mmol/L (22-29); CHLORIDE 95 mmol/L (98-107); CREATINE KINASE MB 3.9 ng/mL (0-5); CREATINE KINASE, TOTAL 106 U/L (39-308); CREATININE 3.86 mg/dL (0.60-1.30); GLOMERULAR FILTR. RATE CALC 16 mL/min (>60); PHOSPHORUS 7.4 mg/dL (2.5-4.9); POTASSIUM 4.8 mmol/L (3.5-5.1); SODIUM SERUM 135 mmol/L (136-145); UREA NITROGEN, BLOOD 45 mg/dL (7-18)
[2016-05-28] MEDS: SODIUM CHLORIDE 0.9% 1,000 ML IV SCH (06:39)
[2016-05-28] MEDS: HEPARIN SODIUM,PORCINE 5,000 UNITS/ML VIAL SQ SCH ×2 (08:32→21:33)
[2016-05-28] MEDS: EPOETIN ALFA 10,000 UNITS/ML 2 ML VIAL SQ SCH (08:33)
[2016-05-28] MEDS: INSULIN DETEMIR 100 UNITS/ML SQ SCH (08:35)
[2016-05-28] MEDS: POVIDONE-IODINE 10% 120 ML SOLUTION TP SCH (08:49)
[2016-05-28] MEDS: AmLODIPine BESYLATE 5 MG TABLET PO SCH (09:00)
[2016-05-28] MEDS ORDERED: VANCOMYCIN HCL 1 GM/D5% WATER 200 ML IV ONE (09:00)
[2016-05-28] MEDS ORDERED: HEPARIN SODIUM,PORCINE 1,000 UNITS/ML VIAL IVP ONE (10:00)
[2016-05-28 17:00] LABS: ABG A-A DIFF O2 187.1 mmHg (10-20.0); ABG BASE EXCESS -3.6 mmol/L (-2.0-3.0); ABG HCO3 22.2 mmol/L (22.0-26.0); ABG OXYHEMOGLOBIN 91.1 % (94.0-100.0); ABG PCO2 28 mmHg (35-45); ABG PH 7.468 (7.35-7.450); TEMPERATURE, FAHRENHEIT, BG 99.3 FAHREN (96.0-98.6)
[2016-05-28 20:25] LABS: GLUCOSE,POINT OF CARE 248 MG/DL (70-110)
[2016-05-28 20:25] LABS: GLUCOSE,POINT OF CARE 145 MG/DL (70-110)
[2016-05-28 20:42] LABS: GLUCOSE,POINT OF CARE 138 MG/DL (70-110)
[2016-05-28 20:42] LABS: GLUCOSE,POINT OF CARE 158 MG/DL (70-110)
[2016-05-28 20:42] LABS: GLUCOSE,POINT OF CARE 132 MG/DL (70-110)
[2016-05-28 20:42] LABS: GLUCOSE COMMENT 1 Received Meds; GLUCOSE,POINT OF CARE 160 MG/DL (70-110)
[2016-05-28 20:42] LABS: GLUCOSE COMMENT 1 Received Meds; GLUCOSE,POINT OF CARE 189 MG/DL (70-110)
[2016-05-28 20:42] LABS: GLUCOSE,POINT OF CARE 148 MG/DL (70-110)
[2016-05-28 20:42] LABS: GLUCOSE COMMENT 1 Received Meds; GLUCOSE,POINT OF CARE 168 MG/DL (70-110)
[2016-05-28 20:42] LABS: GLUCOSE COMMENT 1 FASTING; GLUCOSE,POINT OF CARE 160 MG/DL (70-110)
[2016-05-28 20:42] LABS: GLUCOSE,POINT OF CARE 128 MG/DL (70-110)
[2016-05-28] MEDS: SODIUM BICARBONATE 650 MG TABLET PO SCH (21:00)
[2016-05-28] MEDS: DOCUSATE SODIUM 100 MG CAPSULE PO SCH (21:00)
[2016-05-29] VITALS (11 sets, daily range): BP systolic 102–122; BP diastolic 57–72
[2016-05-29] MEDS: PROPOFOL 1000 MG/ISO-OSM 100 ML IV PRN ×5 (00:46→21:11)
[2016-05-29 02:27] LABS: GLUCOSE,POINT OF CARE 155 MG/DL (70-110)
[2016-05-29 02:27] LABS: GLUCOSE COMMENT 1 Received Meds; GLUCOSE,POINT OF CARE 236 MG/DL (70-110)
[2016-05-29 02:27] LABS: GLUCOSE,POINT OF CARE 184 MG/DL (70-110)
[2016-05-29] MEDS: IPRATROPIUM BROMIDE 0.5 MG/2.5 ML NEB SOLUTION NEB SCH ×6 (02:28→22:41)
[2016-05-29] MEDS: ALBUTEROL SULFATE 2.5 MG/0.5 ML NEB SOLUTION NEB SCH ×6 (02:29→22:41)
[2016-05-29 05:22] LABS: HEMATOCRIT 26.6 % (41-53); MEAN CORPUSCULAR HEMOGLOBIN 29.5 pg (26.0-34.0); MEAN CORPUSCULAR HGB CONC 33.7 G/dL (31.0-37.0); MEAN CORPUSCULAR VOLUME 87 fL (80-100); PLATELET COUNT (AUTO) 435 K/uL (150-450); RED BLOOD CELL COUNT(AUTO) 3.05 MIL/uL (4.50-5.90); RED CELL DISTRIBUTION WIDTH 16.2 % (11.5-14.5); WHITE BLOOD COUNT (AUTO) 15.4 K/uL (4.5-11.0)
[2016-05-29 05:39] LABS: CREATININE 1.82 mg/dL (0.60-1.30)
[2016-05-29 05:46] LABS: CALCIUM, TOTAL 5.3 mg/dL (8.8-10.5); POTASSIUM 2.1 mmol/L (3.5-5.1)
[2016-05-29] MEDS: POTASSIUM CHL 10 MEQ/WATER 50 ML IV SCH ×4 (06:08→09:37)
[2016-05-29 06:11] LABS: GLUCOSE,POINT OF CARE 142 MG/DL (70-110)
[2016-05-29 07:14] LABS: LYMPHOCYTES % (MANUAL) 4 % (22-44); TOTAL CELLS COUNTED 100
[2016-05-29] MEDS ORDERED: SODIUM CHLORIDE 0.9% 2,000 ML IV ONE (08:11)
[2016-05-29] MEDS: CLOPIDOGREL BISULFATE 75 MG TABLET PO SCH ×2 (08:19→08:33)
[2016-05-29] MEDS: SODIUM BICARBONATE 650 MG TABLET PO SCH ×2 (08:19→21:10)
[2016-05-29] MEDS: VITAMIN B COMPLEX ER TABLET PO SCH ×2 (08:19→08:32)
[2016-05-29] MEDS: FERROUS SULFATE 325 MG EC TABLET PO SCH ×2 (08:20→08:32)
[2016-05-29] MEDS: DOCUSATE SODIUM 100 MG CAPSULE PO SCH ×2 (08:20→21:10)
[2016-05-29] MEDS: ASPIRIN 81 MG CHEWABLE TABLET PO SCH ×2 (08:20→08:32)
[2016-05-29] MEDS: PANTOPRAZOLE SODIUM 40 MG DR TABLET PO SCH ×2 (08:20→08:33)
[2016-05-29] MEDS: HEPARIN SODIUM,PORCINE 5,000 UNITS/ML VIAL SQ SCH ×2 (08:21→21:09)
[2016-05-29] MEDS: INSULIN DETEMIR 100 UNITS/ML SQ SCH (08:22)
[2016-05-29] MEDS: POVIDONE-IODINE 10% 120 ML SOLUTION TP SCH (08:23)
[2016-05-29] MEDS: METOPROLOL SUCCINATE 25 MG ER TABLET PO SCH (08:33)
[2016-05-29] MEDS: AmLODIPine BESYLATE 5 MG TABLET PO SCH (08:33)
[2016-05-29] MEDS: ERGOCALCIFEROL (VIT D2) 50,000 UNITS CAPSULE PO SCH (09:37)
[2016-05-29 14:31] LABS: CALCIUM, TOTAL 8.5 mg/dL (8.8-10.5); CREATININE 1.83 mg/dL (0.60-1.30); MAGNESIUM 1.6 mg/dL (1.80-2.40); PHOSPHORUS 2.7 mg/dL (2.5-4.9); POTASSIUM 3.5 mmol/L (3.5-5.1)
[2016-05-29 15:26] LABS: GLUCOSE,POINT OF CARE 100 MG/DL (70-110)
[2016-05-29] MEDS ORDERED: MAGNESIUM SULFATE 2 GM in DEXTROSE 5%-WATER 50 ML IV ONE (16:00)
[2016-05-29] MEDS ORDERED: HEPARIN SODIUM,PORCINE 1,000 UNITS/ML VIAL IVP ONE (16:20)
[2016-05-29] MEDS ORDERED: SODIUM CHLORIDE 0.9% 500 ML IV ONE (21:05)
[2016-05-29] MEDS ORDERED: SODIUM CHLORIDE 0.9% 250 ML IV ONE (21:05)
[2016-05-29] MEDS: ACETAMINOPHEN 325 MG TABLET PO PRN (21:10)
[2016-05-29] MEDS: BISACODYL 10 MG RECTAL RECTAL SUPPOSITORY PR PRN (22:57)
[2016-05-30] VITALS (8 sets, daily range): BP systolic 89–110; BP diastolic 46–64
[2016-05-30] MEDS: INSULIN ASPART 100 UNITS/ML SQ PRN ×3 (00:26→17:28)
[2016-05-30] MEDS: PROPOFOL 1000 MG/ISO-OSM 100 ML IV PRN ×3 (01:02→19:41)
[2016-05-30] MEDS: IPRATROPIUM BROMIDE 0.5 MG/2.5 ML NEB SOLUTION NEB SCH ×6 (03:11→22:32)
[2016-05-30] MEDS: ALBUTEROL SULFATE 2.5 MG/0.5 ML NEB SOLUTION NEB SCH ×6 (03:11→22:32)
[2016-05-30 04:01] LABS: GLUCOSE,POINT OF CARE 74 MG/DL (70-110)
[2016-05-30 05:33] LABS: CREATININE 2.42 mg/dL (0.60-1.30); MAGNESIUM 2.2 mg/dL (1.80-2.40); PHOSPHORUS 3.2 mg/dL (2.5-4.9); POTASSIUM 3.6 mmol/L (3.5-5.1)
[2016-05-30 06:40] LABS: BASOPHILS % (AUTO) 0.1 % (0.0-2.0); EOSINOPHILS % (AUTO) 1.1 % (1.0-6.0); HEMATOCRIT 30.1 % (41-53); HEMOGLOBIN 9.8 g/dL (13.5-17.5); LYMPHOCYTES # (AUTO) 0.8 K/uL (1.0-4.8); LYMPHOCYTES % (AUTO) 5.4 % (22.0-44.0); MEAN CORPUSCULAR HEMOGLOBIN 29.1 pg (26.0-34.0); MEAN CORPUSCULAR HGB CONC 32.6 G/dL (31.0-37.0); MEAN CORPUSCULAR VOLUME 89 fL (80-100); MONOCYTES # (AUTO) 0.9 K/uL (0.1-1.0); NEUTROPHILS # (AUTO) 13.3 K/uL (1.8-7.7); PLATELET COUNT (AUTO) 400 K/uL (150-450); RED BLOOD CELL COUNT(AUTO) 3.37 MIL/uL (4.50-5.90); WHITE BLOOD COUNT (AUTO) 15.2 K/uL (4.5-11.0)
[2016-05-30 06:42] LABS: NEUTROPHILS % (AUTO) 87.4 % (40.0-70.0)
[2016-05-30 07:28] LABS: ABG A-A DIFF O2 106.6 mmHg (10-20.0); ABG BASE EXCESS -0.6 mmol/L (-2.0-3.0); ABG HCO3 24.8 mmol/L (22.0-26.0); ABG OXYHEMOGLOBIN 94.9 % (94.0-100.0); ABG PCO2 26 mmHg (35-45); TEMPERATURE, FAHRENHEIT, BG 99.2 FAHREN (96.0-98.6)
[2016-05-30 07:33] LABS: ALLEN TEST, BLOOD GAS Positive
[2016-05-30] MEDS: FERROUS SULFATE 325 MG EC TABLET PO SCH (08:10)
[2016-05-30] MEDS: ASPIRIN 81 MG CHEWABLE TABLET PO SCH (08:10)
[2016-05-30] MEDS: METOPROLOL SUCCINATE 25 MG ER TABLET PO SCH (08:11)
[2016-05-30] MEDS: PANTOPRAZOLE SODIUM 40 MG DR TABLET PO SCH (08:11)
[2016-05-30] MEDS: AmLODIPine BESYLATE 5 MG TABLET PO SCH (08:11)
[2016-05-30] MEDS: DOCUSATE SODIUM 100 MG CAPSULE PO SCH ×2 (08:11→21:06)
[2016-05-30] MEDS: CLOPIDOGREL BISULFATE 75 MG TABLET PO SCH (08:11)
[2016-05-30] MEDS: VITAMIN B COMPLEX ER TABLET PO SCH (08:11)
[2016-05-30 08:12] LABS: GLUCOSE COMMENT 1 Received Meds; GLUCOSE,POINT OF CARE 137 MG/DL (70-110)
[2016-05-30 08:12] LABS: GLUCOSE COMMENT 1 Received Meds; GLUCOSE,POINT OF CARE 163 MG/DL (70-110)
[2016-05-30] MEDS: SODIUM BICARBONATE 650 MG TABLET PO SCH ×2 (08:12→22:47)
[2016-05-30] MEDS: HEPARIN SODIUM,PORCINE 5,000 UNITS/ML VIAL SQ SCH ×2 (08:12→21:06)
[2016-05-30] MEDS: INSULIN DETEMIR 100 UNITS/ML SQ SCH (08:13)
[2016-05-30] MEDS: POVIDONE-IODINE 10% 120 ML SOLUTION TP SCH (08:16)
[2016-05-30] MEDS: MORPHINE SULFATE 2 MG/ML SYRINGE IVP PRN (08:44)
[2016-05-30] MEDS: MULTIVITAMINS WITH MINERALS, THERAPEUTIC 15 ML UDCUP NG SCH (11:38)
[2016-05-30] MEDS: ACETAMINOPHEN 325 MG TABLET PO PRN (11:38)
[2016-05-30] MEDS ORDERED: SODIUM CHLORIDE 0.9% 500 ML IV ONE (22:35)
[2016-05-31] VITALS (9 sets, daily range): BP systolic 102–125; BP diastolic 58–73
[2016-05-31] MEDS: INSULIN ASPART 100 UNITS/ML SQ PRN ×4 (00:08→18:46)
[2016-05-31] MEDS: IPRATROPIUM BROMIDE 0.5 MG/2.5 ML NEB SOLUTION NEB SCH ×6 (03:12→23:01)
[2016-05-31] MEDS: ALBUTEROL SULFATE 2.5 MG/0.5 ML NEB SOLUTION NEB SCH ×6 (03:13→23:01)
[2016-05-31 05:24] LABS: CALCIUM, TOTAL 7.8 mg/dL (8.8-10.5); CREATININE 2.78 mg/dL (0.60-1.30); POTASSIUM 3.4 mmol/L (3.5-5.1)
[2016-05-31] MEDS: PROPOFOL 1000 MG/ISO-OSM 100 ML IV PRN ×2 (05:51→23:09)
[2016-05-31 06:20] LABS: HEMATOCRIT 29.5 % (41-53); MEAN CORPUSCULAR HEMOGLOBIN 29.8 pg (26.0-34.0); MEAN CORPUSCULAR HGB CONC 33.9 G/dL (31.0-37.0); MEAN CORPUSCULAR VOLUME 88 fL (80-100); PLATELET COUNT (AUTO) 422 K/uL (150-450); RED BLOOD CELL COUNT(AUTO) 3.36 MIL/uL (4.50-5.90); RED CELL DISTRIBUTION WIDTH 16.4 % (11.5-14.5); WHITE BLOOD COUNT (AUTO) 17.9 K/uL (4.5-11.0)
[2016-05-31] MEDS: SODIUM BICARBONATE 650 MG TABLET PO SCH ×2 (07:44→21:10)
[2016-05-31] MEDS: VITAMIN B COMPLEX ER TABLET PO SCH (07:44)
[2016-05-31] MEDS: CLOPIDOGREL BISULFATE 75 MG TABLET PO SCH (07:44)
[2016-05-31] MEDS: PANTOPRAZOLE SODIUM 40 MG DR TABLET PO SCH (07:44)
[2016-05-31] MEDS: DOCUSATE SODIUM 100 MG CAPSULE PO SCH ×2 (07:45→21:10)
[2016-05-31] MEDS: FERROUS SULFATE 325 MG EC TABLET PO SCH (07:45)
[2016-05-31] MEDS: ASPIRIN 81 MG CHEWABLE TABLET PO SCH (07:45)
[2016-05-31] MEDS: EPOETIN ALFA 10,000 UNITS/ML 2 ML VIAL SQ SCH (07:46)
[2016-05-31] MEDS: HEPARIN SODIUM,PORCINE 5,000 UNITS/ML VIAL SQ SCH ×2 (07:46→21:10)
[2016-05-31] MEDS: METOPROLOL SUCCINATE 25 MG ER TABLET PO SCH (07:47)
[2016-05-31] MEDS: AmLODIPine BESYLATE 5 MG TABLET PO SCH (07:47)
[2016-05-31 07:49] LABS: MAGNESIUM 2.2 mg/dL (1.80-2.40)
[2016-05-31] MEDS: INSULIN DETEMIR 100 UNITS/ML SQ SCH (07:49)
[2016-05-31] MEDS: POVIDONE-IODINE 10% 120 ML SOLUTION TP SCH (07:54)
[2016-05-31] MEDS ORDERED: VANCOMYCIN HCL 1 GM/D5% WATER 200 ML IV ONE (08:00)
[2016-05-31] MEDS: MULTIVITAMINS WITH MINERALS, THERAPEUTIC 15 ML UDCUP NG SCH (08:14)
[2016-05-31 10:32] LABS: BAND NEUTROPHILS % (MANUAL) 1 % (1-5); LYMPHOCYTES % (MANUAL) 11 % (22-44); RBC MORPHOLOGY COMMENT NORMAL RBC MORPH; TOTAL CELLS COUNTED 100
[2016-05-31] MEDS ORDERED: SODIUM CHLORIDE 0.9% 2,000 ML IV ONE (10:50)
[2016-05-31] MEDS: MORPHINE SULFATE 2 MG/ML SYRINGE IVP PRN (11:35)
[2016-05-31] MEDS ORDERED: HEPARIN SODIUM,PORCINE 1,000 UNITS/ML VIAL IVP ONE (16:57)
[2016-05-31] MEDS ORDERED: SODIUM CHLORIDE 0.9% 250 ML IV ONE (18:32)
[2016-05-31 22:44] LABS: APPEARANCE,UNSPUN,BODY FLUID HAZY (CLEAR); COLOR,BODY FLUID LT YELLOW (LT YELLOW)
[2016-05-31 22:45] LABS: PH, BODY FLUID 7
[2016-05-31 22:47] LABS: BODY FLUID RBC 16.1 /cu. mm.
[2016-06-01] VITALS (11 sets, daily range): BP systolic 104–188; BP diastolic 53–68
[2016-06-01] MEDS ORDERED: ONDANSETRON HCL 4 MG/2 ML VIAL IVP ONE (02:00)
[2016-06-01] MEDS ORDERED: LIDOCAINE HCL/PF 2% 5 ML SYRINGE IVP ONE (02:00)
[2016-06-01] MEDS ORDERED: ROCURONIUM BROMIDE 10 MG/ML 5 ML VIAL IVP ONE (02:00)
[2016-06-01] MEDS ORDERED: METOCLOPRAMIDE HCL 5 MG/ML 2 ML VIAL IVP ONE (02:00)
[2016-06-01] MEDS ORDERED: MIDAZOLAM HCL 2 MG/2 ML VIAL IVP ONE (02:00)
[2016-06-01] MEDS: IPRATROPIUM BROMIDE 0.5 MG/2.5 ML NEB SOLUTION NEB SCH ×6 (03:28→22:50)
[2016-06-01] MEDS: ALBUTEROL SULFATE 2.5 MG/0.5 ML NEB SOLUTION NEB SCH ×6 (03:28→22:50)
[2016-06-01] MEDS ORDERED: SODIUM CHLORIDE 0.9% 0 ML IV ONE (05:33)
[2016-06-01 05:35] LABS: BASOPHILS # (AUTO) 0.02 K/uL (0.00-0.20); BASOPHILS % (AUTO) 0.1 % (0.0-2.0); EOSINOPHILS # (AUTO) 0.26 K/uL (0.00-0.70); EOSINOPHILS % (AUTO) 1.83 % (1.0-6.0); HEMATOCRIT 29.4 % (41-53); HEMOGLOBIN 9.7 g/dL (13.5-17.5); LYMPHOCYTES # (AUTO) 1.5 K/uL (1.0-4.8); LYMPHOCYTES % (AUTO) 10.5 % (22.0-44.0); MEAN CORPUSCULAR HEMOGLOBIN 29.1 pg (26.0-34.0); MEAN CORPUSCULAR HGB CONC 33.1 G/dL (31.0-37.0); MEAN CORPUSCULAR VOLUME 88 fL (80-100); MONOCYTES # (AUTO) 1.2 K/uL (0.1-1.0); MONOCYTES % (AUTO) 8.1 % (2.0-9.0); NEUTROPHILS # (AUTO) 11.4 K/uL (1.8-7.7); NEUTROPHILS % (AUTO) 79.4 % (40.0-70.0); PLATELET COUNT (AUTO) 428 K/uL (150-450); RED BLOOD CELL COUNT(AUTO) 3.34 MIL/uL (4.50-5.90); RED CELL DISTRIBUTION WIDTH 16.7 % (11.5-14.5); WHITE BLOOD COUNT (AUTO) 14.4 K/uL (4.5-11.0)
[2016-06-01] MEDS: MORPHINE SULFATE 2 MG/ML SYRINGE IVP PRN ×5 (05:35→23:25)
[2016-06-01 05:55] LABS: CALCIUM, TOTAL 7.6 mg/dL (8.8-10.5); CREATININE 1.85 mg/dL (0.60-1.30); MAGNESIUM 1.8 mg/dL (1.80-2.40); PHOSPHORUS 2.4 mg/dL (2.5-4.9); POTASSIUM 3.2 mmol/L (3.5-5.1)
[2016-06-01 06:09] LABS: PROTHROMBIN TIME 10.7 SEC (9.4-11.6)
[2016-06-01] MEDS: FERROUS SULFATE 325 MG EC TABLET PO SCH (08:00)
[2016-06-01] MEDS: ASPIRIN 81 MG CHEWABLE TABLET PO SCH (08:00)
[2016-06-01] MEDS: HEPARIN SODIUM,PORCINE 5,000 UNITS/ML VIAL SQ SCH ×2 (08:07→20:12)
[2016-06-01] MEDS: INSULIN DETEMIR 100 UNITS/ML SQ SCH (08:10)
[2016-06-01] MEDS: METOPROLOL SUCCINATE 25 MG ER TABLET PO SCH ×2 (09:00→16:16)
[2016-06-01] MEDS: SODIUM BICARBONATE 650 MG TABLET PO SCH ×2 (09:00→20:12)
[2016-06-01] MEDS: CLOPIDOGREL BISULFATE 75 MG TABLET PO SCH (09:00)
[2016-06-01] MEDS: AmLODIPine BESYLATE 5 MG TABLET PO SCH ×2 (09:00→16:17)
[2016-06-01] MEDS: MULTIVITAMINS WITH MINERALS, THERAPEUTIC 15 ML UDCUP NG SCH (09:00)
[2016-06-01] MEDS: VITAMIN B COMPLEX ER TABLET PO SCH (09:00)
[2016-06-01] MEDS: PANTOPRAZOLE SODIUM 40 MG DR TABLET PO SCH (09:00)
[2016-06-01] MEDS: DOCUSATE SODIUM 100 MG CAPSULE PO SCH ×2 (09:00→20:12)
[2016-06-01] MEDS ORDERED: SODIUM PHOS,M-BASIC-D-BASIC 20 MMOL in DEXTROSE 5%-WATER 150 ML IV ONE (10:00)
[2016-06-01] MEDS: POVIDONE-IODINE 10% 120 ML SOLUTION TP SCH (10:19)
[2016-06-01 11:20] LABS: ABG A-A DIFF O2 74.4 mmHg (10-20.0); ABG HCO3 27.7 mmol/L (22.0-26.0); ABG OXYHEMOGLOBIN 97.6 % (94.0-100.0); ABG PCO2 29 mmHg (35-45); ABG PH 7.563 (7.35-7.450); TEMPERATURE, FAHRENHEIT, BG 98.1 FAHREN (96.0-98.6)
[2016-06-01 11:21] LABS: ALLEN TEST, BLOOD GAS Positive
[2016-06-01] MEDS: INSULIN ASPART 100 UNITS/ML SQ PRN ×2 (12:10→20:35)
[2016-06-01] MEDS ORDERED: SODIUM CHLORIDE 0.9% 1,000 ML IV ONE (13:19)
[2016-06-01 19:29] LABS: TOTAL PROTEIN,BODY FLUID,REF 1.6 g/dL
[2016-06-01] MEDS ORDERED: SODIUM CHLORIDE 0.9% 250 ML IV ONE (20:09)
[2016-06-01] MEDS: PROPOFOL 1000 MG/ISO-OSM 100 ML IV PRN (20:13)
[2016-06-02] VITALS (11 sets, daily range): BP systolic 110–181; BP diastolic 43–71
[2016-06-02] MEDS: PROPOFOL 1000 MG/ISO-OSM 100 ML IV PRN ×6 (01:07→23:47)
[2016-06-02] MEDS: OxyCODONE HCL/ACETAMINOPHEN 5-325 MG TABLET PO PRN (02:29)
[2016-06-02] MEDS: IPRATROPIUM BROMIDE 0.5 MG/2.5 ML NEB SOLUTION NEB SCH ×6 (02:53→22:48)
[2016-06-02] MEDS: ALBUTEROL SULFATE 2.5 MG/0.5 ML NEB SOLUTION NEB SCH ×6 (02:53→22:48)
[2016-06-02] MEDS: MORPHINE SULFATE 2 MG/ML SYRINGE IVP PRN ×4 (03:49→21:38)
[2016-06-02] MEDS: VITAMIN B COMPLEX ER TABLET PO SCH (08:04)
[2016-06-02] MEDS: SODIUM BICARBONATE 650 MG TABLET PO SCH ×2 (08:04→21:19)
[2016-06-02] MEDS: CLOPIDOGREL BISULFATE 75 MG TABLET PO SCH (08:04)
[2016-06-02] MEDS: HEPARIN SODIUM,PORCINE 5,000 UNITS/ML VIAL SQ SCH ×2 (08:04→21:19)
[2016-06-02] MEDS: DOCUSATE SODIUM 100 MG CAPSULE PO SCH ×2 (08:05→21:19)
[2016-06-02] MEDS: FERROUS SULFATE 325 MG EC TABLET PO SCH (08:07)
[2016-06-02] MEDS: ASPIRIN 81 MG CHEWABLE TABLET PO SCH (08:07)
[2016-06-02] MEDS: PANTOPRAZOLE SODIUM 40 MG DR TABLET PO SCH (08:07)
[2016-06-02] MEDS: INSULIN DETEMIR 100 UNITS/ML SQ SCH (08:11)
[2016-06-02] MEDS: AmLODIPine BESYLATE 5 MG TABLET PO SCH (08:21)
[2016-06-02] MEDS: METOPROLOL SUCCINATE 25 MG ER TABLET PO SCH (08:22)
[2016-06-02] MEDS: MULTIVITAMINS WITH MINERALS, THERAPEUTIC 15 ML UDCUP NG SCH (09:00)
[2016-06-02] MEDS ORDERED: MANNITOL 25%-12.5 GM/50 ML VIAL IVP PRN (10:00)
[2016-06-02] MEDS ORDERED: HEPARIN SODIUM,PORCINE 1,000 UNITS/ML VIAL IVP ONE ×3 (10:00→12:00)
[2016-06-02 10:12] LABS: ALBUMIN 1.3 g/dL (3.4-5.0); BILIRUBIN,TOTAL 0.4 mg/dL (0.1-1.0); CALCIUM, TOTAL 7.4 mg/dL (8.8-10.5); CREATININE 1.87 mg/dL (0.60-1.30); MAGNESIUM 1.6 mg/dL (1.80-2.40); PHOSPHORUS 3.2 mg/dL (2.5-4.9); TOTAL PROTEIN, SERUM 5.3 g/dL (6.4-8.2)
[2016-06-02 10:15] LABS: POTASSIUM 2.7 mmol/L (3.5-5.1)
[2016-06-02] MEDS ORDERED: MANNITOL 25%-12.5 GM/50 ML VIAL IVP ONE (12:00)
[2016-06-02] MEDS ORDERED: MAGNESIUM SULFATE 3 GM in DEXTROSE 5%-WATER 100 ML IV ONE (12:00)
[2016-06-02 18:11] LABS: GLUCOSE COMMENT 1 Received Meds; GLUCOSE,POINT OF CARE 215 MG/DL (70-110)
[2016-06-02] MEDS: INSULIN ASPART 100 UNITS/ML SQ PRN (18:13)
[2016-06-02 18:17] LABS: GLUCOSE,POINT OF CARE 212 MG/DL (70-110)
[2016-06-02 18:17] LABS: GLUCOSE COMMENT 1 Received Meds; GLUCOSE,POINT OF CARE 150 MG/DL (70-110)
[2016-06-02 18:17] LABS: GLUCOSE,POINT OF CARE 120 MG/DL (70-110)
[2016-06-02 18:17] LABS: GLUCOSE,POINT OF CARE 164 MG/DL (70-110)
[2016-06-02 18:17] LABS: GLUCOSE COMMENT 1 Received Meds; GLUCOSE,POINT OF CARE 191 MG/DL (70-110)
[2016-06-02 18:17] LABS: GLUCOSE,POINT OF CARE 211 MG/DL (70-110)
[2016-06-02 18:17] LABS: GLUCOSE,POINT OF CARE 165 MG/DL (70-110)
[2016-06-02 18:17] LABS: GLUCOSE,POINT OF CARE 131 MG/DL (70-110)
[2016-06-02 18:17] LABS: GLUCOSE COMMENT 1 Received Meds; GLUCOSE,POINT OF CARE 161 MG/DL (70-110)
[2016-06-02 18:18] LABS: GLUCOSE,POINT OF CARE 154 MG/DL (70-110)
[2016-06-02 18:20] LABS: GLUCOSE COMMENT 1 Received Meds; GLUCOSE,POINT OF CARE 190 MG/DL (70-110)
[2016-06-02 18:21] LABS: GLUCOSE,POINT OF CARE 200 MG/DL (70-110)
[2016-06-03] VITALS (8 sets, daily range): BP systolic 127–187; BP diastolic 47–75
[2016-06-03] MEDS: INSULIN ASPART 100 UNITS/ML SQ PRN ×4 (00:04→17:39)
[2016-06-03] MEDS: IPRATROPIUM BROMIDE 0.5 MG/2.5 ML NEB SOLUTION NEB SCH ×6 (02:42→22:52)
[2016-06-03] MEDS: ALBUTEROL SULFATE 2.5 MG/0.5 ML NEB SOLUTION NEB SCH ×6 (02:42→22:52)
[2016-06-03] MEDS: PROPOFOL 1000 MG/ISO-OSM 100 ML IV PRN ×2 (04:25→08:59)
[2016-06-03] MEDS: MORPHINE SULFATE 2 MG/ML SYRINGE IVP PRN ×2 (04:58→17:38)
[2016-06-03] MEDS ORDERED: SODIUM CHLORIDE 0.9% 500 ML IV ONE (05:31)
[2016-06-03 07:46] LABS: CALCIUM, TOTAL 7.6 mg/dL (8.8-10.5); CREATININE 2.09 mg/dL (0.60-1.30); MAGNESIUM 2.5 mg/dL (1.80-2.40); POTASSIUM 3.1 mmol/L (3.5-5.1)
[2016-06-03] MEDS: POVIDONE-IODINE 10% 120 ML SOLUTION TP SCH ×2 (08:59→09:03)
[2016-06-03] MEDS: MULTIVITAMINS WITH MINERALS, THERAPEUTIC 15 ML UDCUP NG SCH (08:59)
[2016-06-03] MEDS: FERROUS SULFATE 325 MG EC TABLET PO SCH (08:59)
[2016-06-03] MEDS: VITAMIN B COMPLEX ER TABLET PO SCH (08:59)
[2016-06-03] MEDS: METOPROLOL SUCCINATE 25 MG ER TABLET PO SCH (09:00)
[2016-06-03] MEDS: DOCUSATE SODIUM 100 MG CAPSULE PO SCH ×2 (09:00→20:34)
[2016-06-03] MEDS: AmLODIPine BESYLATE 5 MG TABLET PO SCH (09:00)
[2016-06-03] MEDS: PANTOPRAZOLE SODIUM 40 MG DR TABLET PO SCH (09:00)
[2016-06-03] MEDS: CLOPIDOGREL BISULFATE 75 MG TABLET PO SCH (09:00)
[2016-06-03] MEDS: ASPIRIN 81 MG CHEWABLE TABLET PO SCH (09:00)
[2016-06-03] MEDS: HEPARIN SODIUM,PORCINE 5,000 UNITS/ML VIAL SQ SCH ×2 (09:01→21:07)
[2016-06-03] MEDS: INSULIN DETEMIR 100 UNITS/ML SQ SCH (09:01)
[2016-06-03 09:02] LABS: BASOPHILS % (AUTO) 0.4 % (0.0-2.0); EOSINOPHILS % (AUTO) 1.5 % (1.0-6.0); HEMATOCRIT 35.8 % (41-53); HEMOGLOBIN 11.8 g/dL (13.5-17.5); LYMPHOCYTES # (AUTO) 1.5 K/uL (1.0-4.8); MEAN CORPUSCULAR HEMOGLOBIN 28.9 pg (26.0-34.0); MEAN CORPUSCULAR HGB CONC 32.9 G/dL (31.0-37.0); MEAN CORPUSCULAR VOLUME 88 fL (80-100); MONOCYTES # (AUTO) 1.4 K/uL (0.1-1.0); NEUTROPHILS # (AUTO) 10.6 K/uL (1.8-7.7); NEUTROPHILS % (AUTO) 77.1 % (40.0-70.0); PLATELET COUNT (AUTO) 392 K/uL (150-450); RED BLOOD CELL COUNT(AUTO) 4.08 MIL/uL (4.50-5.90); WHITE BLOOD COUNT (AUTO) 13.8 K/uL (4.5-11.0)
[2016-06-03] MEDS: SODIUM BICARBONATE 650 MG TABLET PO SCH ×2 (09:02→20:34)
[2016-06-03 10:02] LABS: ABG A-A DIFF O2 74.3 mmHg (10-20.0); ABG BASE EXCESS 1.1 mmol/L (-2.0-3.0); ABG OXYHEMOGLOBIN 96.3 % (94.0-100.0); ABG PCO2 31 mmHg (35-45); ABG PH 7.508 (7.35-7.450); TEMPERATURE, FAHRENHEIT, BG 98.6 FAHREN (96.0-98.6)
[2016-06-03] MEDS ORDERED: VANCOMYCIN HCL 1 GM/D5% WATER 200 ML IV ONE (10:15)
[2016-06-03] MEDS ORDERED: POTASSIUM CHLORIDE 10% 40 MEQ/30 ML LIQUID UDCUP NG ONE (11:00)
[2016-06-03] MEDS: ACETAMINOPHEN 325 MG TABLET PO PRN (12:27)
[2016-06-03 15:24] LABS: ABG A-A DIFF O2 81.7 mmHg (10-20.0); ABG BASE EXCESS -3.6 mmol/L (-2.0-3.0); ABG HCO3 22.4 mmol/L (22.0-26.0); ABG OXYHEMOGLOBIN 96.9 % (94.0-100.0); ABG PCO2 29 mmHg (35-45); ABG PH 7.463 (7.35-7.450); TEMPERATURE, FAHRENHEIT, BG 98.6 FAHREN (96.0-98.6)
[2016-06-03] MEDS ORDERED: AmLODIPine BESYLATE 5 MG TABLET PO SCH (15:45)
[2016-06-03] MEDS ORDERED: AmLODIPine BESYLATE 5 MG TABLET PO ONE ×2 (16:00→16:30)
[2016-06-03] MEDS ORDERED: HydrALAZINE HCL 20 MG/ML VIAL IVP PRN (18:15)
[2016-06-03] MEDS ORDERED: LABETALOL HCL 5 MG/ML 20 ML VIAL IVP PRN (18:15)
[2016-06-03 19:33] LABS: ABG BASE EXCESS -2.8 mmol/L (-2.0-3.0); ABG HCO3 23.1 mmol/L (22.0-26.0); ABG OXYHEMOGLOBIN 93.8 % (94.0-100.0); ABG PCO2 28 mmHg (35-45); ABG PH 7.486 (7.35-7.450); ALLEN TEST, BLOOD GAS POSITIVE; TEMPERATURE, FAHRENHEIT, BG 98.6 FAHREN (96.0-98.6)
[2016-06-03] MEDS: HYDROmorphone 2 MG/ML SYRINGE IVP PRN (19:38)
[2016-06-04] VITALS (13 sets, daily range): BP systolic 106–139; BP diastolic 55–81
[2016-06-04] MEDS: HYDROmorphone 2 MG/ML SYRINGE IVP PRN ×6 (00:07→22:10)
[2016-06-04] MEDS: IPRATROPIUM BROMIDE 0.5 MG/2.5 ML NEB SOLUTION NEB SCH ×6 (02:19→22:58)
[2016-06-04] MEDS: ALBUTEROL SULFATE 2.5 MG/0.5 ML NEB SOLUTION NEB SCH ×6 (02:19→22:58)
[2016-06-04 05:55] LABS: HEMATOCRIT 37.2 % (41-53); HEMOGLOBIN 11.8 g/dL (13.5-17.5); MEAN CORPUSCULAR HGB CONC 31.7 G/dL (31.0-37.0); MEAN CORPUSCULAR VOLUME 88 fL (80-100); PLATELET COUNT (AUTO) 369 K/uL (150-450); RED BLOOD CELL COUNT(AUTO) 4.21 MIL/uL (4.50-5.90); RED CELL DISTRIBUTION WIDTH 15.9 % (11.5-14.5); WHITE BLOOD COUNT (AUTO) 16.5 K/uL (4.5-11.0)
[2016-06-04 06:20] LABS: CALCIUM, TOTAL 8.1 mg/dL (8.8-10.5); CREATININE 2.26 mg/dL (0.60-1.30); MAGNESIUM 2.3 mg/dL (1.80-2.40); PHOSPHORUS 3.6 mg/dL (2.5-4.9)
[2016-06-04 08:47] LABS: BAND NEUTROPHILS % (MANUAL) 2 % (1-5); EOSINOPHILS % (MANUAL) 1 % (1-6); LYMPHOCYTES % (MANUAL) 8 % (22-44); RBC MORPHOLOGY COMMENT NORMAL RBC MORPH; TOTAL CELLS COUNTED 100
[2016-06-04] MEDS ORDERED: AmLODIPine BESYLATE 10 MG TABLET PO SCH (09:00)
[2016-06-04] MEDS: INSULIN DETEMIR 100 UNITS/ML SQ SCH ×2 (09:00→17:34)
[2016-06-04] MEDS: CLOPIDOGREL BISULFATE 75 MG TABLET PO SCH (09:38)
[2016-06-04] MEDS: MULTIVITAMINS WITH MINERALS, THERAPEUTIC 15 ML UDCUP NG SCH (09:38)
[2016-06-04] MEDS: HEPARIN SODIUM,PORCINE 5,000 UNITS/ML VIAL SQ SCH ×2 (09:38→22:10)
[2016-06-04] MEDS: VITAMIN B COMPLEX ER TABLET PO SCH (09:38)
[2016-06-04] MEDS: FERROUS SULFATE 325 MG EC TABLET PO SCH (09:38)
[2016-06-04] MEDS: SODIUM BICARBONATE 650 MG TABLET PO SCH ×2 (09:38→22:10)
[2016-06-04] MEDS: METOPROLOL SUCCINATE 25 MG ER TABLET PO SCH (09:38)
[2016-06-04] MEDS: ERGOCALCIFEROL (VIT D2) 50,000 UNITS CAPSULE PO SCH (09:39)
[2016-06-04] MEDS: DOCUSATE SODIUM 100 MG CAPSULE PO SCH ×2 (09:39→22:10)
[2016-06-04] MEDS: PANTOPRAZOLE SODIUM 40 MG DR TABLET PO SCH (09:39)
[2016-06-04] MEDS: ASPIRIN 81 MG CHEWABLE TABLET PO SCH (09:39)
[2016-06-04] MEDS: POVIDONE-IODINE 10% 120 ML SOLUTION TP SCH (09:40)
[2016-06-04] MEDS: INSULIN ASPART 100 UNITS/ML SQ PRN ×2 (12:39→17:33)
[2016-06-04] MEDS: OxyCODONE HCL/ACETAMINOPHEN 5-325 MG TABLET PO PRN ×2 (12:39→19:46)
[2016-06-04] MEDS: POTASSIUM CHL 10 MEQ/WATER 50 ML IV SCH ×4 (12:39→17:35)
[2016-06-04 18:17] LABS: GLUCOSE,POINT OF CARE 135 MG/DL (70-110)
[2016-06-04 18:22] LABS: GLUCOSE COMMENT 1 Received Meds; GLUCOSE,POINT OF CARE 212 MG/DL (70-110)
[2016-06-04 18:23] LABS: GLUCOSE COMMENT 1 Received Meds; GLUCOSE,POINT OF CARE 186 MG/DL (70-110)
[2016-06-04 18:27] LABS: GLUCOSE COMMENT 1 Received Meds; GLUCOSE,POINT OF CARE 251 MG/DL (70-110)
[2016-06-04 20:22] LABS: GLUCOSE COMMENT 1 Received Meds; GLUCOSE,POINT OF CARE 241 MG/DL (70-110)
[2016-06-04 20:22] LABS: GLUCOSE,POINT OF CARE 230 MG/DL (70-110)
[2016-06-04 20:27] LABS: GLUCOSE,POINT OF CARE 148 MG/DL (70-110)
[2016-06-04 20:27] LABS: GLUCOSE COMMENT 1 Received Meds; GLUCOSE,POINT OF CARE 273 MG/DL (70-110)
[2016-06-05] VITALS (8 sets, daily range): BP systolic 107–120; BP diastolic 60–71
[2016-06-05] MEDS: OxyCODONE HCL/ACETAMINOPHEN 5-325 MG TABLET PO PRN ×3 (00:08→13:52)
[2016-06-05] MEDS: ALBUTEROL SULFATE 2.5 MG/0.5 ML NEB SOLUTION NEB SCH ×6 (03:00→23:59)
[2016-06-05] MEDS: IPRATROPIUM BROMIDE 0.5 MG/2.5 ML NEB SOLUTION NEB SCH ×6 (03:00→23:59)
[2016-06-05] MEDS: HYDROmorphone 2 MG/ML SYRINGE IVP PRN ×3 (05:27→21:10)
[2016-06-05 06:10] LABS: EOSINOPHILS % (AUTO) 1.5 % (1.0-6.0); HEMATOCRIT 37.6 % (41-53); LYMPHOCYTES # (AUTO) 1.2 K/uL (1.0-4.8); LYMPHOCYTES % (AUTO) 6.8 % (22.0-44.0); MEAN CORPUSCULAR HGB CONC 31.9 G/dL (31.0-37.0); MEAN CORPUSCULAR VOLUME 88 fL (80-100); MONOCYTES # (AUTO) 0.9 K/uL (0.1-1.0); MONOCYTES % (AUTO) 4.9 % (2.0-9.0); NEUTROPHILS # (AUTO) 15.3 K/uL (1.8-7.7); PLATELET COUNT (AUTO) 442 K/uL (150-450); RED BLOOD CELL COUNT(AUTO) 4.28 MIL/uL (4.50-5.90); RED CELL DISTRIBUTION WIDTH 15.9 % (11.5-14.5); WHITE BLOOD COUNT (AUTO) 17.6 K/uL (4.5-11.0)
[2016-06-05 06:26] LABS: CALCIUM, TOTAL 8.5 mg/dL (8.8-10.5); CREATININE 2.33 mg/dL (0.60-1.30); POTASSIUM 3.6 mmol/L (3.5-5.1)
[2016-06-05 06:55] LABS: NEUTROPHILS % (AUTO) 86.8 % (40.0-70.0)
[2016-06-05] MEDS: METOPROLOL SUCCINATE 25 MG ER TABLET PO SCH (07:00)
[2016-06-05] MEDS: ACETAMINOPHEN 325 MG TABLET PO PRN ×2 (08:03→12:50)
[2016-06-05] MEDS: DOCUSATE SODIUM 100 MG CAPSULE PO SCH ×2 (09:00→21:16)
[2016-06-05] MEDS ORDERED: *CLINICAL-CEFEPIME DOSING CLINICAL ONE ×2 (09:45)
[2016-06-05 09:51] LABS: ABG A-A DIFF O2 616.9 mmHg (10-20.0); ABG BASE EXCESS -3.6 mmol/L (-2.0-3.0); ABG HCO3 22.5 mmol/L (22.0-26.0); ABG OXYHEMOGLOBIN 93.5 % (94.0-100.0); ABG PCO2 27 mmHg (35-45); ABG PH 7.486 (7.35-7.450); ALLEN TEST, BLOOD GAS POSITIVE; TEMPERATURE, FAHRENHEIT, BG 98.6 FAHREN (96.0-98.6)
[2016-06-05] MEDS ORDERED: CEFEPIME HCL 1 GM in DEXTROSE 5%-WATER 50 ML IV ONE (10:00)
[2016-06-05] MEDS ORDERED: SODIUM CHLORIDE 0.9% 250 ML IV ONE (10:25)
[2016-06-05] MEDS: PANTOPRAZOLE SODIUM 40 MG DR TABLET PO SCH (10:47)
[2016-06-05] MEDS: ASPIRIN 81 MG CHEWABLE TABLET PO SCH (10:47)
[2016-06-05] MEDS: CLOPIDOGREL BISULFATE 75 MG TABLET PO SCH (10:47)
[2016-06-05] MEDS: FERROUS SULFATE 325 MG EC TABLET PO SCH (10:47)
[2016-06-05] MEDS: HEPARIN SODIUM,PORCINE 5,000 UNITS/ML VIAL SQ SCH ×2 (10:52→21:16)
[2016-06-05] MEDS: INSULIN DETEMIR 100 UNITS/ML SQ SCH (11:11)
[2016-06-05] MEDS: MetroNIDAZOLE 500 MG/NACL 100 ML IV SCH ×2 (11:20→18:31)
[2016-06-05] MEDS ORDERED: FUROSEMIDE 40 MG/4 ML VIAL IVP ONE (12:15)
[2016-06-05 15:39] LABS: APPEARANCE,URINE TURBID (CLEAR); GLUCOSE, URINE (UA) 100 mg/dL (NEGATIVE); KETONES,URINE NEGATIVE (NEGATIVE); LEUKOCYTE ESTERASE ,URINE TRACE (NEGATIVE); OCCULT BLOOD,URINE LARGE (NEGATIVE); PH,URINE 5.5 (5.0-8.0); PROTEIN,URINE SEE CONFIRM (NEGATIVE)
[2016-06-05 15:44] LABS: ADD UA MICROSCOPIC YES
[2016-06-05 15:47] LABS: AMORPHOUS SEDIMENT,UR Many /LPF (None Seen); RBC,URINE 26-50 /HPF (0-2); SQUAMOUS EPITHELIAL CELL,UR Few /LPF (None Seen); SULFOSALICYLIC ACID,URINE 3+ (Negative)
[2016-06-05 17:57] LABS: GLUCOSE COMMENT 1 Received Meds; GLUCOSE,POINT OF CARE 221 MG/DL (70-110)
[2016-06-05] MEDS: INSULIN ASPART 100 UNITS/ML SQ PRN (18:01)
[2016-06-05] MEDS: VITAMIN B COMPLEX ER TABLET PO SCH (18:31)
[2016-06-05] MEDS: MULTIVITAMINS WITH MINERALS, THERAPEUTIC 15 ML UDCUP NG SCH (18:31)
[2016-06-05] MEDS: POVIDONE-IODINE 10% 120 ML SOLUTION TP SCH (20:00)
[2016-06-06 00:07] VITALS: BP 140/83
[2016-06-06] MEDS: MetroNIDAZOLE 500 MG/NACL 100 ML IV SCH ×3 (02:18→17:04)
[2016-06-06] MEDS: ALBUTEROL SULFATE 2.5 MG/0.5 ML NEB SOLUTION NEB SCH ×6 (03:20→21:59)
[2016-06-06] MEDS: IPRATROPIUM BROMIDE 0.5 MG/2.5 ML NEB SOLUTION NEB SCH ×6 (03:20→21:59)
[2016-06-06] MEDS: HYDROmorphone 2 MG/ML SYRINGE IVP PRN (04:20)
[2016-06-06 04:40] VITALS: BP 134/57
[2016-06-06 07:29] LABS: BASOPHILS # (AUTO) 0.01 K/uL (0.00-0.20); EOSINOPHILS # (AUTO) 0.05 K/uL (0.00-0.70); HEMATOCRIT 32.6 % (41-53); HEMOGLOBIN 10.7 g/dL (13.5-17.5); LYMPHOCYTES % (AUTO) 6.1 % (22.0-44.0); MEAN CORPUSCULAR HEMOGLOBIN 28.6 pg (26.0-34.0); MEAN CORPUSCULAR HGB CONC 32.8 G/dL (31.0-37.0); MEAN CORPUSCULAR VOLUME 87 fL (80-100); MONOCYTES # (AUTO) 0.9 K/uL (0.1-1.0); MONOCYTES % (AUTO) 5.3 % (2.0-9.0); NEUTROPHILS # (AUTO) 14.3 K/uL (1.8-7.7); PLATELET COUNT (AUTO) 515 K/uL (150-450); RED BLOOD CELL COUNT(AUTO) 3.74 MIL/uL (4.50-5.90); RED CELL DISTRIBUTION WIDTH 16.1 % (11.5-14.5); WHITE BLOOD COUNT (AUTO) 16.2 K/uL (4.5-11.0)
[2016-06-06 07:37] VITALS: BP 145/67
[2016-06-06 07:37] LABS: NEUTROPHILS % (AUTO) 88.3 % (40.0-70.0)
[2016-06-06 07:51] LABS: CALCIUM, TOTAL 8.6 mg/dL (8.8-10.5); CREATININE 2.64 mg/dL (0.60-1.30); MAGNESIUM 2.2 mg/dL (1.80-2.40); PHOSPHORUS 4.4 mg/dL (2.5-4.9); POTASSIUM 3.6 mmol/L (3.5-5.1)
[2016-06-06] MEDS: -HEMODIALYSIS NOTE- MISC SCH (09:00)
[2016-06-06] MEDS: FUROSEMIDE 40 MG/4 ML VIAL IVP SCH ×2 (09:29→20:56)
[2016-06-06] MEDS: FERROUS SULFATE 325 MG EC TABLET PO SCH (09:29)
[2016-06-06] MEDS: ASPIRIN 81 MG CHEWABLE TABLET PO SCH (09:29)
[2016-06-06] MEDS: VITAMIN B COMPLEX ER TABLET PO SCH (09:31)
[2016-06-06] MEDS: MULTIVITAMINS WITH MINERALS, THERAPEUTIC 15 ML UDCUP NG SCH (09:31)
[2016-06-06] MEDS: DOCUSATE SODIUM 100 MG CAPSULE PO SCH ×2 (09:35→20:55)
[2016-06-06] MEDS: AmLODIPine BESYLATE 5 MG TABLET PO SCH (09:35)
[2016-06-06] MEDS: HEPARIN SODIUM,PORCINE 5,000 UNITS/ML VIAL SQ SCH ×2 (09:35→20:55)
[2016-06-06] MEDS: CLOPIDOGREL BISULFATE 75 MG TABLET PO SCH (09:36)
[2016-06-06] MEDS: POVIDONE-IODINE 10% 120 ML SOLUTION TP SCH (09:38)
[2016-06-06] MEDS: METOPROLOL SUCCINATE 25 MG ER TABLET PO SCH (09:38)
[2016-06-06] MEDS: PANTOPRAZOLE SODIUM 40 MG DR TABLET PO SCH (09:38)
[2016-06-06] MEDS: INSULIN DETEMIR 100 UNITS/ML SQ SCH (09:40)
[2016-06-06] MEDS: CEFEPIME HCL 0.5 GM in DEXTROSE 5%-WATER 50 ML IV SCH (09:44)
[2016-06-06] MEDS ORDERED: VANCOMYCIN HCL 1 GM/D5% WATER 200 ML IV ONE (10:00)
[2016-06-06 11:07] VITALS: BP 119/71
[2016-06-06] MEDS: INSULIN ASPART 100 UNITS/ML SQ PRN ×2 (11:57→17:59)
[2016-06-06 12:02] LABS: GLUCOSE,POINT OF CARE 100 MG/DL (70-110)
[2016-06-06 12:02] LABS: GLUCOSE COMMENT 1 Received Meds; GLUCOSE,POINT OF CARE 197 MG/DL (70-110)
[2016-06-06 12:02] LABS: GLUCOSE,POINT OF CARE 77 MG/DL (70-110)
[2016-06-06 12:02] LABS: GLUCOSE,POINT OF CARE 158 MG/DL (70-110)
[2016-06-06 12:02] LABS: GLUCOSE,POINT OF CARE 105 MG/DL (70-110)
[2016-06-06 12:12] LABS: GLUCOSE COMMENT 1 Received Meds; GLUCOSE,POINT OF CARE 255 MG/DL (70-110)
[2016-06-06 15:34] VITALS: BP 117/67
[2016-06-06] MEDS: OxyCODONE HCL/ACETAMINOPHEN 5-325 MG TABLET PO PRN ×2 (16:58→21:24)
[2016-06-06 17:56] LABS: GLUCOSE COMMENT 1 Received Meds; GLUCOSE,POINT OF CARE 196 MG/DL (70-110)
[2016-06-06 20:16] VITALS: BP 113/65
[2016-06-06] MEDS: BISACODYL 10 MG RECTAL RECTAL SUPPOSITORY PR PRN (20:56)
[2016-06-07 00:03] VITALS: BP 124/68
[2016-06-07] MEDS: MetroNIDAZOLE 500 MG/NACL 100 ML IV SCH ×3 (02:03→17:35)
[2016-06-07] MEDS: IPRATROPIUM BROMIDE 0.5 MG/2.5 ML NEB SOLUTION NEB SCH ×5 (02:51→18:59)
[2016-06-07] MEDS: ALBUTEROL SULFATE 2.5 MG/0.5 ML NEB SOLUTION NEB SCH ×5 (02:51→18:59)
[2016-06-07] MEDS: HYDROmorphone 2 MG/ML SYRINGE IVP PRN ×4 (04:19→17:29)
[2016-06-07 04:51] VITALS: BP 131/65
[2016-06-07 07:13] LABS: BASOPHILS # (AUTO) 0.06 K/uL (0.00-0.20); BASOPHILS % (AUTO) 0.4 % (0.0-2.0); EOSINOPHILS # (AUTO) 0.14 K/uL (0.00-0.70); EOSINOPHILS % (AUTO) 0.89 % (1.0-6.0); HEMATOCRIT 31.6 % (41-53); HEMOGLOBIN 10.5 g/dL (13.5-17.5); LYMPHOCYTES # (AUTO) 0.8 K/uL (1.0-4.8); LYMPHOCYTES % (AUTO) 4.9 % (22.0-44.0); MEAN CORPUSCULAR HEMOGLOBIN 28.5 pg (26.0-34.0); MEAN CORPUSCULAR HGB CONC 33.3 G/dL (31.0-37.0); MEAN CORPUSCULAR VOLUME 86 fL (80-100); MONOCYTES # (AUTO) 0.7 K/uL (0.1-1.0); MONOCYTES % (AUTO) 4.5 % (2.0-9.0); NEUTROPHILS # (AUTO) 13.7 K/uL (1.8-7.7); PLATELET COUNT (AUTO) 531 K/uL (150-450); RED BLOOD CELL COUNT(AUTO) 3.69 MIL/uL (4.50-5.90); RED CELL DISTRIBUTION WIDTH 15.9 % (11.5-14.5); WHITE BLOOD COUNT (AUTO) 15.3 K/uL (4.5-11.0)
[2016-06-07 07:21] LABS: NEUTROPHILS % (AUTO) 89.3 % (40.0-70.0)
[2016-06-07 07:29] LABS: CALCIUM, TOTAL 8.5 mg/dL (8.8-10.5); CREATININE 2.52 mg/dL (0.60-1.30); MAGNESIUM 1.8 mg/dL (1.80-2.40); PHOSPHORUS 4.1 mg/dL (2.5-4.9)
[2016-06-07 07:41] LABS: POTASSIUM 2.8 mmol/L (3.5-5.1)
[2016-06-07 07:48] VITALS: BP 132/57
[2016-06-07] MEDS: FUROSEMIDE 40 MG/4 ML VIAL IVP SCH (08:03)
[2016-06-07] MEDS: -HEMODIALYSIS NOTE- MISC SCH (08:04)
[2016-06-07] MEDS: MULTIVITAMINS WITH MINERALS, THERAPEUTIC 15 ML UDCUP NG SCH (08:14)
[2016-06-07] MEDS: ASPIRIN 81 MG CHEWABLE TABLET PO SCH (08:14)
[2016-06-07] MEDS: CLOPIDOGREL BISULFATE 75 MG TABLET PO SCH (08:14)
[2016-06-07] MEDS: AmLODIPine BESYLATE 5 MG TABLET PO SCH (08:14)
[2016-06-07] MEDS: VITAMIN B COMPLEX ER TABLET PO SCH (08:14)
[2016-06-07] MEDS: FERROUS SULFATE 325 MG EC TABLET PO SCH (08:14)
[2016-06-07] MEDS: DOCUSATE SODIUM 100 MG CAPSULE PO SCH (08:14)
[2016-06-07] MEDS: METOPROLOL SUCCINATE 25 MG ER TABLET PO SCH (08:14)
[2016-06-07] MEDS: PANTOPRAZOLE SODIUM 40 MG DR TABLET PO SCH (08:15)
[2016-06-07] MEDS ORDERED: POTASSIUM CHLORIDE 20 MEQ ER TABLET PO ONE (08:15)
[2016-06-07] MEDS: POVIDONE-IODINE 10% 120 ML SOLUTION TP SCH (08:15)
[2016-06-07] MEDS: INSULIN DETEMIR 100 UNITS/ML SQ SCH (08:24)
[2016-06-07] MEDS: POTASSIUM CHL 10 MEQ/WATER 50 ML IV SCH ×2 (10:24→11:43)
[2016-06-07 11:14] VITALS: BP 139/77
[2016-06-07] MEDS: INSULIN ASPART 100 UNITS/ML SQ PRN (11:53)
[2016-06-07 12:28] LABS: CALCIUM, TOTAL 8.4 mg/dL (8.8-10.5); CREATININE 2.42 mg/dL (0.60-1.30); POTASSIUM 3.3 mmol/L (3.5-5.1)
[2016-06-07] MEDS: CEFEPIME HCL 0.5 GM in DEXTROSE 5%-WATER 50 ML IV SCH (14:31)
[2016-06-07 16:03] VITALS: BP 127/76
[2016-06-07] MEDS ORDERED: FUROSEMIDE 40 MG/4 ML VIAL IVP SCH (21:00)
[2016-06-08 00:17] LABS: GLUCOSE COMMENT 1 Received Meds; GLUCOSE,POINT OF CARE 197 MG/DL (70-110)
[2016-06-08 20:46] LABS: GLUCOSE,POINT OF CARE 179 MG/DL (70-110)
[2016-06-08 20:46] LABS: GLUCOSE COMMENT 1 Received Meds; GLUCOSE,POINT OF CARE 223 MG/DL (70-110)
[2016-06-08 20:46] LABS: GLUCOSE,POINT OF CARE 81 MG/DL (70-110)
[2016-06-08 20:46] LABS: GLUCOSE,POINT OF CARE 119 MG/DL (70-110)
== END 2016-06-07 20:16 | DRG 270 ==
LOC: 5N 09:05 → ICU 05-27 13:23 → 5S 06-04 19:54
PROVIDERS: ADMIT Internal Medicine; ATTEND Internal Medicine
PROC: 02HV33Z Insertion of Infusion Device into Superior Vena Cava, Percutaneous Approach (ICD-10-PCS; 2016-05-24)
PROC: B5181ZA Fluoroscopy of Superior Vena Cava using Low Osmolar Contrast, Guidance (ICD-10-PCS; 2016-05-24)
PROC: B548ZZA Ultrasonography of Superior Vena Cava, Guidance (ICD-10-PCS; 2016-05-24)
PROC: 5A1D60Z (ICD-10-PCS; 2016-05-24)
PROC: 0W993ZZ Drainage of Right Pleural Cavity, Percutaneous Approach (ICD-10-PCS; 2016-05-25)
PROC: 05WY33Z Revision of Infusion Device in Upper Vein, Percutaneous Approach (ICD-10-PCS; 2016-05-26)
PROC: B41F1ZZ Fluoroscopy of Right Lower Extremity Arteries using Low Osmolar Contrast (ICD-10-PCS; 2016-05-26)
PROC: B41DYZZ Fluoroscopy of Aorta and Bilateral Lower Extremity Arteries using Other Contrast (ICD-10-PCS; 2016-05-26)
PROC: 5A1955Z Respiratory Ventilation, Greater than 96 Consecutive Hours (ICD-10-PCS; 2016-05-26)
PROC: 0BH17EZ Insertion of Endotracheal Airway into Trachea, Via Natural or Artificial Opening (ICD-10-PCS; 2016-05-26)
PROC: 047K3ZZ Dilation of Right Femoral Artery, Percutaneous Approach (ICD-10-PCS; 2016-05-27)
PROC: 047T3ZZ Dilation of Right Peroneal Artery, Percutaneous Approach (ICD-10-PCS; 2016-05-27)
PROC: 04UK3KZ Supplement Right Femoral Artery with Nonautologous Tissue Substitute, Percutaneous Approach (ICD-10-PCS; 2016-05-27)
PROC: 04CM3ZZ Extirpation of Matter from Right Popliteal Artery, Percutaneous Approach (ICD-10-PCS; 2016-05-27)
PROC: 04CK3ZZ Extirpation of Matter from Right Femoral Artery, Percutaneous Approach (ICD-10-PCS; 2016-05-27)
PROC: 047T3ZZ Dilation of Right Peroneal Artery, Percutaneous Approach (ICD-10-PCS; 2016-05-27)
PROC: 047K3EZ Dilation of Right Femoral Artery with Two Intraluminal Devices, Percutaneous Approach (ICD-10-PCS; 2016-05-27)
PROC: 047M3DZ Dilation of Right Popliteal Artery with Intraluminal Device, Percutaneous Approach (ICD-10-PCS; 2016-05-27)
PROC: 30243N1 Transfusion of Nonautologous Red Blood Cells into Central Vein, Percutaneous Approach (ICD-10-PCS; 2016-05-27)
PROC: 04CT3ZZ Extirpation of Matter from Right Peroneal Artery, Percutaneous Approach (ICD-10-PCS; principal; 2016-05-27 10:00)
PROC: 0W993ZZ Drainage of Right Pleural Cavity, Percutaneous Approach (ICD-10-PCS; 2016-05-31)
PROC: 0Y6H0Z1 Detachment at Right Lower Leg, High, Open Approach (ICD-10-PCS; 2016-06-01)
PROC: 05HB33Z Insertion of Infusion Device into Right Basilic Vein, Percutaneous Approach (ICD-10-PCS; 2016-06-04)
DX: E11.52 Type 2 diabetes mellitus with diabetic peripheral angiopathy with gangrene (principal); J96.01 Acute respiratory failure with hypoxia; A41.9 Sepsis, unspecified organism; E43 Unspecified severe protein-calorie malnutrition; N18.6 End stage renal disease; N17.9 Acute kidney failure, unspecified; E87.1 Hypo-osmolality and hyponatremia; L03.115 Cellulitis of right lower limb; T82.868A Thrombosis due to vascular prosthetic devices, implants and grafts, initial encounter; I13.2 Hypertensive heart and chronic kidney disease with heart failure and with stage 5 chronic kidney disease, or end stage renal disease; N39.0 Urinary tract infection, site not specified; R65.10 Systemic inflammatory response syndrome (SIRS) of non-infectious origin without acute organ dysfunction; I74.8 Embolism and thrombosis of other arteries; I74.3 Embolism and thrombosis of arteries of the lower extremities; E11.42 Type 2 diabetes mellitus with diabetic polyneuropathy; E11.21 Type 2 diabetes mellitus with diabetic nephropathy; I73.9 Peripheral vascular disease, unspecified; E11.22 Type 2 diabetes mellitus with diabetic chronic kidney disease; D63.1 Anemia in chronic kidney disease; I25.10 Atherosclerotic heart disease of native coronary artery without angina pectoris; Z79.899 Other long term (current) drug therapy; Z79.4 Long term (current) use of insulin; Z79.02 Long term (current) use of antithrombotics/antiplatelets; Z79.82 Long term (current) use of aspirin; Z79.1 Long term (current) use of non-steroidal anti-inflammatories (NSAID); Z89.411 Acquired absence of right great toe; Z89.412 Acquired absence of left great toe; Z89.421 Acquired absence of other right toe(s); Z87.891 Personal history of nicotine dependence; I50.9 Heart failure, unspecified; E55.9 Vitamin D deficiency, unspecified; D47.3 Essential (hemorrhagic) thrombocythemia; I25.2 Old myocardial infarction; E78.5 Hyperlipidemia, unspecified; I25.5 Ischemic cardiomyopathy; E11.319 Type 2 diabetes mellitus with unspecified diabetic retinopathy without macular edema; Y83.8 Other surgical procedures as the cause of abnormal reaction of the patient, or of later complication, without mention of misadventure at the time of the procedure; Y92.89 Other specified places as the place of occurrence of the external cause; I77.1 Stricture of artery; N20.0 Calculus of kidney; E87.6 Hypokalemia; Z78.1 Physical restraint status; K59.00 Constipation, unspecified; Z86.73 Personal history of transient ischemic attack (TIA), and cerebral infarction without residual deficits; Z99.2 Dependence on renal dialysis
CPT/HCPCS: 32555; 36200; 36561; 71020; 71250; 75630; 75710; 75716; 76942; 81050; 82465; 82570; 82805; 82945; 82962; 83605; 83615; 83735; 83930; 83935; 83986; 84100; 84132; 84133; 84155; 84156; 84157; 84300; 85007; 85014; 85018; 86706; 86707; 86850; 86900; 86901; 86920; 86927; 87015; 87040; 87070; 87081; 87086; 87101; 87205; 87340; 87350; 88108; 88304; 88307; 88311; 89051; 90935; 92610; 93005; 93306; 93925; 93970; 94002; 94003; 94640; 94660; 97001; 97112; 97163; 97167; 97530; J0690; J0692; J0885; J1100; J1170; J1644; J1940; J2150; J2250; J2270; J2370; J2405; J2704; J2765; J3010; J3370; J3475; J3480; J3490; J7030; J7040; J7050; J7060; J7120; P9016; P9017; Q9966; Q9967